=== PATIENT | male | born 1940 | race Caucasian/White ===

== ENCOUNTER 2016-10-04 10:58 | Emergency (ER) | payer MEDICARE ==
[2016-10-04 11:06] VITALS: RESP 18
[2016-10-04] MEDS ORDERED: hydrALAZINE HCL 20 MG/ML 1 ML VIAL IVP STA (11:20)
[2016-10-04] MEDS ORDERED: LORazepam 2 MG/ML SYRINGE IV STA (11:20)
--- NOTE | 2016-10-04 11:26 | ED ---
General Adult HPI - General Chief complaint: Headache Stated complaint: Headache Time Seen by Provider: 10/04/16 11:00 Source: EMS, RN notes reviewed Mode of arrival: EMS Limitations: no limitations - History of Present Illness Initial comments: This is a 75-year-old male presents to the emergency department complaining of a left-sided pain in his scalp he states last about 1-2 seconds and goes away and then after 5-10 minutes comes back again. Patient states it currently is not there. Patient states he did not take his blood pressure medications today either. Patient denies any visual changes patient denies any speech changes patient denies any numbness or weakness. Patient denies any recent trauma or injury. Patient denies any chest pain palpitations difficulty breathing or shortness of breath. Patient denies abdominal pain patient denies nausea vomiting or diarrhea. Patient denies any recent injury or trauma. Patient states currently the pain center but he thinks it'll come again. - Related Data Home Medications Medication Instructions Recorded Confirmed Nitroglycerin Sl Tabs [Nitrostat] 0.4 mg SUBLINGUAL Q5M PRN 04/07/14 10/04/16 Albuterol Inhaler [Ventolin Hfa 2 puff INHALATION RT-Q6H PRN 07/07/16 10/04/16 Inhaler] Hydrochlorothiazide [Hydrodiuril] 12.5 mg PO DAILY 08/01/16 10/04/16 diphenhydrAMINE [Benadryl] 25 mg PO QID PRN 08/10/16 10/04/16 Glimepiride [Amaryl] 1 mg PO DAILY 09/01/16 10/04/16 Allergies Allergy/AdvReac Type Severity Reaction Status Date / Time aspirin Allergy Intermediate Rash/Hives Verified 10/04/16 11:06 cephalexin monohydrate Allergy Intermediate Rash/Hives,SHORTNESS Verified 11:06 [From Keflex] OF BREATH, SWELLING cyclobenzaprine HCl Allergy Intermediate Swelling Verified 10/04/16 11:06 [From Flexeril] hydromorphone HCl Allergy Intermediate Swelling Verified 10/04/16 11:06 [From Dilaudid] ibuprofen [From Motrin] Allergy Intermediate Rash/Hives Verified 10/04/16 11:06 ketorolac tromethamine Allergy Intermediate Swelling Verified 10/04/16 11:06 [From Toradol] meperidine HCl [From Demerol] Allergy Intermediate Swelling Verified 10/04/16 11 :06 Tetanus Vaccines and Toxoid Allergy Intermediate Rash/Hives Verified 10/04/16 11 :06 [Tetanus Vaccines & Toxoid] celecoxib [From Celebrex] Allergy Swelling Verified 10/04/16 11:06 levofloxacin [From Levaquin] Allergy Swelling Verified 10/04/16 11:06 tramadol HCl [From Ultram] Allergy Rash/Hives Verified 10/04/16 11:06 fentanyl AdvReac Intermediate Nausea Verified 10/04/16 11:06 Review of Systems ROS Statement: Those systems with pertinent positive or pertinent negative responses have been documented in the HPI. ROS Other: All systems not noted in ROS Statement are negative. Past Medical History Past Medical History: Asthma, Cancer, Diabetes Mellitus, Hyperlipidemia, Hypertension, Neurologic Disorder, Osteoarthritis (OA), Pneumonia Additional Past Medical History / Comment(s): Other HX: pancreatic cancer with surgery; parkinsons, generalized OA, RA, gout bilateral feet yrs ago, numbness/ tingling hands/feet, moderate PVD, bronchitis, pneumonia in past, pt is diabetic Last Myocardial Infarction Date:: 12/2005 History of Any Multi-Drug Resistant Organisms: None Reported Date of last positivie culture/infection: not sure MDRO Source:: under left arm Past Surgical History: Heart Catheterization, Joint Replacement, Tonsillectomy Additional Past Surgical History / Comment(s): 04/07/14 cath without intervention , 2013 total R knee, total L knee, R ankle ligament sx, R forearm skin graft, 2006 partial pancreas removal and spleenectomy at [facility]. Past Anesthesia/Blood Transfusion Reactions: No Reported Reaction Past Psychological History: Anxiety Additional Psychological History / Comment(s): Pt resides with his spouse. He uses a cane to ambulate. He doesn't own a car so he gets to [facility] by bus. He has meals on wheels. He has no home care agency use. He manages his own medication. His is not well she has alot of arthritis and asthma. Smoking Status: Former smoker Past Alcohol Use History: None Reported Additional Past Alcohol Use History / Comment(s): Pt started smoking in 1 and quit in 1997 Past Drug Use History: None Reported - Past Family History Father Family Medical History: Osteoarthritis (OA) Additional Family Medical History / Comment(s): Father at age 88 yrs. Mother Family Medical History: Cancer Additional Family Medical History / Comment(s): Mother of stomach cancer at age 79 yrs. General Exam - General Exam Comments Initial Comments: GENERAL: Patient is well-developed and well-nourished. Patient is nontoxic and well- hydrated and is in no acute distress. ENT: Neck is soft and supple. No significant lymphadenopathy is noted. Oropharynx is clear. Moist mucous membranes. Neck has full range of motion without eliciting any pain. EYES: The sclera were anicteric and conjunctiva were pink and moist. Extraocular movements were intact and pupils were equal round and reactive to light. Eyelids were unremarkable. PULMONARY: Unlabored respirations. Good breath sounds bilaterally. No audible rales rhonchi or wheezing was noted. CARDIOVASCULAR: There is a regular rate and rhythm without any murmurs gallops or rubs. ABDOMEN: Soft and nontender with normal bowel sounds. SKIN: Skin is clear with no lesions or rashes and otherwise unremarkable. NEUROLOGIC: Patient is alert and oriented x3. Cranial nerves II through XII are grossly intact. Motor and sensory are also intact. Normal speech, volume and content. Symmetrical smile. MUSCULOSKELETAL: Normal extremities with adequate strength and full range of motion. No lower extremity swelling or edema. No calf tenderness. LYMPHATICS: No significant lymphadenopathy is noted PSYCHIATRIC: Normal psychiatric evaluation. Patient is mildly anxious Limitations: no limitations Course Vital Signs 10/04/16 11:03 Temperature 98.4 F Pulse Rate 76 Respiratory 18 Rate Blood Pressure 181/101 O2 Sat by Pulse 98 Oximetry Disposition Clinical Impression: Scalp pain, Hypertension Disposition: HOME SELF-CARE Condition: Good Instructions: Hypertension (ED) Additional Instructions: Patient should take his medications including his hypertensive medications as prescribed Referrals: Sendy Galvin MD [Primary Care Provider] - 1-2 days
[2016-10-04 12:31] VITALS: BP 165/87; PULSE 87; TEMP 97.9
== END 2016-10-04 12:31 | disposition home or self-care (01) ==
LOC: EC 10:58
DX: R51 Headache (principal); I10 Essential (primary) hypertension; E11.9 Type 2 diabetes mellitus without complications; Z79.84 Long term (current) use of oral hypoglycemic drugs; Z98.61 Coronary angioplasty status; I25.2 Old myocardial infarction; Z79.899 Other long term (current) drug therapy; Z87.891 Personal history of nicotine dependence; Z88.6 Allergy status to analgesic agent; Z88.1 Allergy status to other antibiotic agents; Z88.5 Allergy status to narcotic agent; Z88.7 Allergy status to serum and vaccine; Z88.8 Allergy status to other drugs, medicaments and biological substances
CPT/HCPCS: 99284; 96374; 96375; J2060; J0360

== ENCOUNTER 2016-10-12 09:35 | Emergency (ER) | payer MEDICARE ==
[2016-10-12 09:49] VITALS: TEMP 98.3
--- NOTE | 2016-10-12 10:18 | ED ---
General Adult HPI - General Chief complaint: Extremity Problem,Nontraumatic Stated complaint: Shoulder Pain Time Seen by Provider: 10/12/16 10:04 Source: EMS, RN notes reviewed, old records reviewed Mode of arrival: EMS Limitations: no limitations - History of Present Illness Initial comments: Patient 75-year-old male presenting by EMS today with a chief complaint of left neck and shoulder pain. He describes it as "sharp". States worse with certain movements. Does admit that the pain is worse when he rotates his head to the left. He states it started 4 days ago when he woke up in the morning and had this pain. Patient admits the night prior he was experiencing some chest pain and did take 2 nitro tabs. States has not had any chest pain since. Patient denies any other complaints or associated symptoms. Patient denies any recent fever, chills, shortness of breath, back pain, abdominal pain, nausea or vomiting, numbness or tingling, dysuria or hematuria, constipation or diarrhea, headaches or visual changes, or any other complaints. - Related Data Home Medications Medication Instructions Recorded Confirmed Nitroglycerin Sl Tabs [Nitrostat] 0.4 mg SUBLINGUAL Q5M PRN 04/07/14 10/12/16 Albuterol Inhaler [Ventolin Hfa 2 puff INHALATION RT-Q6H PRN 07/07/16 10/12/16 Inhaler] Hydrochlorothiazide [Hydrodiuril] 12.5 mg PO DAILY 08/01/16 10/12/16 diphenhydrAMINE [Benadryl] 25 mg PO QID PRN 08/10/16 10/12/16 Glimepiride [Amaryl] 1 mg PO DAILY 09/01/16 10/12/16 Previous Rx's Medication Instructions Recorded Baclofen [Lioresal] 5 mg PO BID #10 tablet 10/12/16 Allergies Allergy/AdvReac Type Severity Reaction Status Date / Time aspirin Allergy Intermediate Rash/Hives Verified 10/12/16 09:48 cephalexin monohydrate Allergy Intermediate Rash/Hives,SHORTNESS Verified 09:48 [From Keflex] OF BREATH, SWELLING cyclobenzaprine HCl Allergy Intermediate Swelling Verified 10/12/16 09:48 [From Flexeril] hydromorphone HCl Allergy Intermediate Swelling Verified 10/12/16 09:48 [From Dilaudid] ibuprofen [From Motrin] Allergy Intermediate Rash/Hives Verified 10/12/16 09:48 ketorolac tromethamine Allergy Intermediate Swelling Verified 10/12/16 09:48 [From Toradol] meperidine HCl [From Demerol] Allergy Intermediate Swelling Verified 10/12/16 09 :48 Tetanus Vaccines and Toxoid Allergy Intermediate Rash/Hives Verified 10/12/16 09 :48 [Tetanus Vaccines & Toxoid] celecoxib [From Celebrex] Allergy Swelling Verified 10/12/16 09:48 levofloxacin [From Levaquin] Allergy Swelling Verified 10/12/16 09:48 tramadol HCl [From Ultram] Allergy Rash/Hives Verified 10/12/16 09:48 fentanyl AdvReac Intermediate Nausea Verified 10/12/16 09:48 Review of Systems ROS Statement: Those systems with pertinent positive or pertinent negative responses have been documented in the HPI. ROS Other: All systems not noted in ROS Statement are negative. Past Medical History Past Medical History: Asthma, Cancer, Diabetes Mellitus, Hyperlipidemia, Hypertension, Neurologic Disorder, Osteoarthritis (OA), Pneumonia Additional Past Medical History / Comment(s): Other HX: pancreatic cancer with surgery; parkinsons, generalized OA, RA, gout bilateral feet yrs ago, numbness/ tingling hands/feet, moderate PVD, bronchitis, pneumonia in past, pt is diabetic Last Myocardial Infarction Date:: 12/2005 History of Any Multi-Drug Resistant Organisms: None Reported Date of last positivie culture/infection: not sure MDRO Source:: under left arm Past Surgical History: Heart Catheterization, Joint Replacement, Tonsillectomy Additional Past Surgical History / Comment(s): 04/07/14 cath without intervention , 2013 total R knee, total L knee, R ankle ligament sx, R forearm skin graft, 2006 partial pancreas removal and spleenectomy at [facility]. Past Anesthesia/Blood Transfusion Reactions: No Reported Reaction Past Psychological History: Anxiety Additional Psychological History / Comment(s): Pt resides with his spouse. He uses a cane to ambulate. He doesn't own a car so [place]. He has meals on wheels. He has no home care agency use. He manages his own medication. His is not well she has alot of arthritis and asthma. Smoking Status: Former smoker Past Alcohol Use History: None Reported Additional Past Alcohol Use History / Comment(s): Pt started smoking in 1953 and quit in 1997 Past Drug Use History: None Reported - Past Family History Father Family Medical History: Osteoarthritis (OA) Additional Family Medical History / Comment(s): Father at age 88 yrs. Mother Family Medical History: Cancer Additional Family Medical History / Comment(s): Mother of stomach cancer at age 79 yrs. General Exam - General Exam Comments Initial Comments: General: The patient is awake and alert, in no distress, and does not appear acutely ill. Eye: Pupils are equal, round and reactive to light, extra-ocular movements are intact. No nystagmus. There is normal conjunctiva bilaterally. No signs of icterus. Ears, nose, mouth and throat: There are moist mucous membranes and no oral lesions. Neck: The neck is supple, there is no tenderness or JVD. Cardiovascular: There is a regular rate and rhythm. No murmur, rub or gallop is appreciated. Respiratory: Lungs are clear to auscultation, respirations are non-labored, breath sounds are equal. No wheezes, stridor, rales, or rhonchi. Gastrointestinal: Soft, non-distended, non-tender abdomen without masses or organomegaly noted. There is no rebound or guarding present. No CVA tenderness. Bowel sounds are unremarkable. Musculoskeletal: Normal appearance of cervical, thoracic, lumbar spine. No step-offs warm is appreciated. No tenderness over the spinous processes. Patient does have paravertebral tenderness on the side of cervical spine going down into the trapezius. Pain worse with rotation to the left. Strength 5/5. Sensation intact. Pulses equal bilaterally 2+. Neurological: A&O x 3. CN II-XII intact, There are no obvious motor or sensory deficits. Coordination appears grossly intact. Speech is normal. Skin: Skin is warm and dry and no rashes or lesions are noted. Psychiatric: Cooperative, appropriate mood & affect, normal judgment. Limitations: no limitations Course Vital Signs 10/12/16 09:47 Temperature 98.3 F Pulse Rate 85 Respiratory 18 Rate Blood Pressure 157/81 O2 Sat by Pulse 94 L Oximetry Medical Decision Making - Medical Decision Making Case discussed in detail with attending physician Dr. Foy. Patient reexamined at this time shows no signs of distress. Patient's labs were reviewed and are unremarkable. Chest x-ray negative. Patient given Valium here in the emergency room as a muscle relaxer. Patient be discharged home with a short prescription of muscle relaxer to go home with. Advised to use heat to the affected area. Advised return here to the emergency room symptoms increase or worsen or for any other concerns. - Lab Data Result diagrams: 10/12/16 10:47 10/12/16 10:47 Lab Results 10/12/16 10/12/16 10/12/16 Range/Units 10:47 10:47 10:47 WBC 8.2 (3.8-10.6) k/uL RBC 4.82 (4.30-5.90) m/uL Hgb 15.5 (13.0-17.5) gm/dL Hct 46.4 (39.0-53.0) % MCV 96.3 (80.0-100.0) fL MCH 32.1 (25.0-35.0) pg MCHC 33.3 (31.0-37.0) g/dL RDW 13.7 (11.5-15.5) % Plt Count 418 (150-450) k/uL Neutrophils % 64 % Lymphocytes % 21 % Monocytes % 6 % Eosinophils % 6 % Basophils % 1 % Neutrophils # 5.2 (1.3-7.7) k/uL Lymphocytes # 1.7 (1.0-4.8) k/uL Monocytes # 0.5 (0-1.0) k/uL Eosinophils # 0.5 (0-0.7) k/uL Basophils # 0.1 (0-0.2) k/uL PT (9.0-12.0) sec INR (<1.1) APTT (22.0-30.0) sec Sodium 140 (137-145) mmol/L Potassium 4.5 (3.5-5.1) mmol/L Chloride 105 (98-107) mmol/L Carbon Dioxide 25 (22-30) mmol/L Anion Gap 10 mmol/L BUN 17 (9-20) mg/dL Creatinine 0.87 (0.66-1.25) mg/dL Est GFR (MDRD) Af Amer >60 (>60 ml/min/1.73 sqM) Est GFR (MDRD) Non-Af >60 (>60 ml/min/1.73 sqM) Glucose 187 H (74-99) mg/dL Calcium 9.4 (8.4-10.2) mg/dL Total Bilirubin 0.9 (0.2-1.3) mg/dL AST 25 (17-59) U/L ALT 30 (21-72) U/L Alkaline Phosphatase 72 (38-126) U/L Total Creatine Kinase 67 (55-170) U/L CK-MB (CK-2) 0.6 (0.0-2.4) ng/mL CK-MB (CK-2) Rel Index 0.9 Troponin I <0.012 (0.000-0.034) ng/mL Total Protein 7.0 (6.3-8.2) g/dL Albumin 3.8 (3.5-5.0) g/dL 10/12/16 Range/Units 10:47 WBC (3.8-10.6) k/uL RBC (4.30-5.90) m/uL Hgb (13.0-17.5) gm/dL Hct (39.0-53.0) % MCV (80.0-100.0) fL MCH (25.0-35.0) pg MCHC (31.0-37.0) g/dL RDW (11.5-15.5) % Plt Count (150-450) k/uL Neutrophils % % Lymphocytes % % Monocytes % % Eosinophils % % Basophils % % Neutrophils # (1.3-7.7) k/uL Lymphocytes # (1.0-4.8) k/uL Monocytes # (0-1.0) k/uL Eosinophils # (0-0.7) k/uL Basophils # (0-0.2) k/uL PT 10.2 (9.0-12.0) sec INR 1.0 (<1.1) APTT 22.6 (22.0-30.0) sec Sodium (137-145) mmol/L Potassium (3.5-5.1) mmol/L Chloride (98-107) mmol/L Carbon Dioxide (22-30) mmol/L Anion Gap mmol/L BUN (9-20) mg/dL Creatinine (0.66-1.25) mg/dL Est GFR (MDRD) Af Amer (>60 ml/min/1.73 sqM) Est GFR (MDRD) Non-Af (>60 ml/min/1.73 sqM) Glucose (74-99) mg/dL Calcium (8.4-10.2) mg/dL Total Bilirubin (0.2-1.3) mg/dL AST (17-59) U/L ALT (21-72) U/L Alkaline Phosphatase (38-126) U/L Total Creatine Kinase (55-170) U/L CK-MB (CK-2) (0.0-2.4) ng/mL CK-MB (CK-2) Rel Index Troponin I (0.000-0.034) ng/mL Total Protein (6.3-8.2) g/dL Albumin (3.5-5.0) g/dL Disposition Clinical Impression: Torticollis, acute Disposition: HOME SELF-CARE Condition: Good Instructions: Spasmodic Torticollis (ED) Additional Instructions: Please use medication as discussed. Please be aware that it may make you drowsy. Please use heat to the area as discussed. Please follow-up with family doctor in the next 2 days of symptoms have not improved. Please return to emergency room if the symptoms increase or worsen or for any other concerns. Prescriptions: Baclofen [Lioresal] 5 mg PO BID #10 tablet Time of Disposition: 11:50
[2016-10-12 11:01] LABS: Basophils # (A) 0.1 k/uL (0-0.2); Basophils % (A) 1 %; CH 32.2; CHCM 33.7; Eosinophils # (A) 0.5 k/uL (0-0.7); Eosinophils % (A) 6 %; HCT 46.4 % (39.0-53.0); HDW 2.63; HGB 15.5 gm/dL (13.0-17.5); Luc # (Auto) 0.13; Luc % (Auto) 2; Lymphocytes # (A) 1.7 k/uL (1.0-4.8); Lymphocytes % (A) 21 %; MCH 32.1 pg (25.0-35.0); MCHC 33.3 g/dL (31.0-37.0); MCV 96.3 fL (80.0-100.0); Mean Platelet Volume 7.2; Monocytes # (A) 0.5 k/uL (0-1.0); Monocytes % (A) 6 %; Neutrophils # (A) 5.2 k/uL (1.3-7.7); Neutrophils % (A) 64 %; RBC 4.82 m/uL (4.30-5.90); RDW 13.7 % (11.5-15.5); WBC 8.2 k/uL (3.8-10.6)
[2016-10-12 11:08] LABS: ALT 30 U/L (21-72); AST 25 U/L (17-59); Alkaline Phosphatase 72 U/L (38-126); Anion Gap 10 mmol/L; Blood Urea Nitrogen 17 mg/dL (9-20); Calcium 9.4 mg/dL (8.4-10.2); Carbon Dioxide 25 mmol/L (22-30); Chloride 105 mmol/L (98-107); Glucose 187 mg/dL (74-99); Non-African American GFR(MDRD) >60 (>60 ml/min/1.73 sqM); Potassium 4.5 mmol/L (3.5-5.1); Sodium 140 mmol/L (137-145); Total Bilirubin 0.9 mg/dL (0.2-1.3)
[2016-10-12 11:09] LABS: Partial Thromboplastin Time 22.6 sec (22.0-30.0); Prothrombin Time 10.2 sec (9.0-12.0)
--- NOTE | 2016-10-12 11:26 | XR ---
EXAMINATION TYPE: XR chest 2V DATE OF EXAM: 10/12/2016 11:03 AM COMPARISON: 08/07/2016 HISTORY: Shortness of breath TECHNIQUE: Frontal and lateral views of the chest are obtained. FINDINGS: Scattered senescent parenchymal changes noted. Hyperinflation compatible with COPD. No evidence for infiltrate. No evidence for atelectasis. Heart size is stable. Mediastinal structures are stable and grossly unremarkable. No evidence for hilar prominence. Degenerative changes dorsal spine. IMPRESSION: 1. No evidence for acute pulmonary disease.
[2016-10-12 11:28] LABS: Creatine Kinase 67 U/L (55-170)
[2016-10-12 11:40] LABS: Creatine Kinase MB 0.6 ng/mL (0.0-2.4); Troponin I <0.012 ng/mL (0.000-0.034)
[2016-10-12] MEDS ORDERED: DIAZEPAM 5 MG TAB PO STA (11:40)
[2016-10-12 12:03] VITALS: BP 182/84; PULSE 67; RESP 16
== END 2016-10-12 12:09 | disposition home or self-care (01) ==
LOC: EC 09:35
DX: M43.6 Torticollis (principal); E11.9 Type 2 diabetes mellitus without complications; Z98.61 Coronary angioplasty status; I10 Essential (primary) hypertension; Z87.891 Personal history of nicotine dependence; Z79.84 Long term (current) use of oral hypoglycemic drugs; Z79.899 Other long term (current) drug therapy; Z88.6 Allergy status to analgesic agent; Z88.1 Allergy status to other antibiotic agents; Z88.5 Allergy status to narcotic agent; Z88.7 Allergy status to serum and vaccine; Z88.8 Allergy status to other drugs, medicaments and biological substances
CPT/HCPCS: 36415; 71020; 80053; 82550; 82553; 84484; 85025; 85610; 85730; 93005; 99284

== ENCOUNTER 2016-10-18 12:29 | Emergency (ER) | payer MEDICARE ==
[2016-10-18 12:37] VITALS: BP 198/92; PULSE 75; RESP 20; TEMP 98
[2016-10-18] MEDS ORDERED: diphenhydrAMINE 50 MG CAP PO STA (13:25)
[2016-10-18] MEDS ORDERED: TRIAMCINOLONE 0.1% CREAM 80 GM TUBE TOPICAL STA (13:28)
--- NOTE | 2016-10-18 13:31 | ED ---
Skin/Abscess/FB HPI - General Chief complaint: Skin/Abscess/Foreign Body Stated complaint: Rash Time Seen by Provider: 10/18/16 12:54 Source: patient, RN notes reviewed, old records reviewed Mode of arrival: ambulatory Limitations: physical limitation - History of Present Illness Initial comments: Patient is a 75-year-old male chief complaint of a pruritic rash for one day. Patient reports that he took one Benadryl a few days ago which seemed to help. Patient reports that he is not taking any Benadryl since then. Patient reports that he is unaware of any bites. Patient states that he has not been any recent antibiotics or had any new exposures. Patient reports that the pruritic rash is mainly over his back and a few spots on his chest. Patient denies any other symptoms including fever or chills. Patient denies any other symptoms including fever, chills, shortness of breath, chest pain, back pain, abdominal pain, nausea vomiting, numbness or tingling, dysuria or hematuria, constipation or diarrhea, headaches or visual changes, or any other current symptoms - Related Data Home Medications Medication Instructions Recorded Confirmed Nitroglycerin Sl Tabs [Nitrostat] 0.4 mg SUBLINGUAL Q5M PRN 04/07/14 10/18/16 Albuterol Inhaler [Ventolin Hfa 2 puff INHALATION RT-Q6H PRN 07/07/16 10/18/16 Inhaler] Hydrochlorothiazide [Hydrodiuril] 12.5 mg PO DAILY 08/01/16 10/18/16 diphenhydrAMINE [Benadryl] 25 mg PO QID PRN 08/10/16 10/18/16 Glimepiride [Amaryl] 1 mg PO DAILY 09/01/16 10/18/16 Previous Rx's Medication Instructions Recorded Baclofen [Lioresal] 5 mg PO BID #10 tablet 10/12/16 Allergies Allergy/AdvReac Type Severity Reaction Status Date / Time aspirin Allergy Intermediate Rash/Hives Verified 10/18/16 12:32 cephalexin monohydrate Allergy Intermediate Rash/Hives,SHORTNESS Verified 12:32 [From Keflex] OF BREATH, SWELLING cyclobenzaprine HCl Allergy Intermediate Swelling Verified 10/18/16 12:32 [From Flexeril] hydromorphone HCl Allergy Intermediate Swelling Verified 10/18/16 12:32 [From Dilaudid] ibuprofen [From Motrin] Allergy Intermediate Rash/Hives Verified 10/18/16 12:32 ketorolac tromethamine Allergy Intermediate Swelling Verified 10/18/16 12:32 [From Toradol] meperidine HCl [From Demerol] Allergy Intermediate Swelling Verified 10/18/16 12 :32 Tetanus Vaccines and Toxoid Allergy Intermediate Rash/Hives Verified 10/18/16 12 :32 [Tetanus Vaccines & Toxoid] celecoxib [From Celebrex] Allergy Swelling Verified 10/18/16 12:32 levofloxacin [From Levaquin] Allergy Swelling Verified 10/18/16 12:32 tramadol HCl [From Ultram] Allergy Rash/Hives Verified 10/18/16 12:32 fentanyl AdvReac Intermediate Nausea Verified 10/18/16 12:32 Review of Systems ROS Statement: Those systems with pertinent positive or pertinent negative responses have been documented in the HPI. ROS Other: All systems not noted in ROS Statement are negative. Past Medical History Past Medical History: Asthma, Cancer, Diabetes Mellitus, Hyperlipidemia, Hypertension, Neurologic Disorder, Osteoarthritis (OA), Pneumonia Additional Past Medical History / Comment(s): Other HX: pancreatic cancer with surgery; parkinsons, generalized OA, RA, gout bilateral feet yrs ago, numbness/ tingling hands/feet, moderate PVD, bronchitis, pneumonia in past, pt is diabetic Last Myocardial Infarction Date:: 12/2005 History of Any Multi-Drug Resistant Organisms: None Reported Date of last positivie culture/infection: not sure MDRO Source:: under left arm Past Surgical History: Heart Catheterization, Joint Replacement, Tonsillectomy Additional Past Surgical History / Comment(s): 04/07/14 cath without intervention , 2013 total R knee, total L knee, R ankle ligament sx, R forearm skin graft, 2006 partial pancreas removal and spleenectomy at [facility]. Past Anesthesia/Blood Transfusion Reactions: No Reported Reaction Past Psychological History: Anxiety Additional Psychological History / Comment(s): Pt resides with his spouse. He uses a cane to ambulate. He doesn't own a car so he gets to [employer] by bus. He has meals on wheels. He has no home care agency use. He manages his own medication. His is not well she has alot of arthritis and asthma. Smoking Status: Former smoker Past Alcohol Use History: None Reported Additional Past Alcohol Use History / Comment(s): Pt started smoking in 3 and quit in 1997 Past Drug Use History: None Reported - Past Family History Father Family Medical History: Osteoarthritis (OA) Additional Family Medical History / Comment(s): Father at age 88 yrs. Mother Family Medical History: Cancer Additional Family Medical History / Comment(s): Mother of stomach cancer at age 79 yrs. General Exam - General Exam Comments Initial Comments: Patient is a alert and oriented [id number] male. He does not appear to be in any acute distress. Limitations: physical limitation General appearance: alert, in no apparent distress Head exam: Present: atraumatic, normocephalic, normal inspection Eye exam: Present: normal appearance, PERRL, EOMI. Absent: scleral icterus, conjunctival injection, periorbital swelling ENT exam: Present: normal exam, mucous membranes moist Neck exam: Present: normal inspection, full ROM. Absent: tenderness, meningismus, lymphadenopathy Respiratory exam: Present: normal lung sounds bilaterally. Absent: respiratory distress, wheezes, rales, rhonchi, stridor Cardiovascular Exam: Present: regular rate, normal rhythm, normal heart sounds. Absent: systolic murmur, diastolic murmur, rubs, gallop, clicks GI/Abdominal exam: Present: soft, normal bowel sounds. Absent: distended, tenderness, guarding, rebound, rigid Extremities exam: Present: normal inspection, full ROM, normal capillary refill. Absent: tenderness, pedal edema, joint swelling, calf tenderness Back exam: Present: normal inspection Neurological exam: Present: alert, oriented X3, CN II-XII intact Psychiatric exam: Present: normal affect, normal mood Skin exam: Present: warm, dry, intact, normal color, rash (Slight scattered areas of erythema over her chest. These could be consistent with flea bites. No evidence of scaling or scabbing over top of it.) Course Vital Signs 10/18/16 12:32 Temperature 98.0 F Pulse Rate 75 Respiratory 20 Rate Blood Pressure 198/92 O2 Sat by Pulse 95 Oximetry Medical Decision Making - Medical Decision Making Patient is a 75-year-old male well-known to the emergency room with chief complaint of a pruritic rash for one day on his chest and back. Patient reports that he took a Benadryl few days ago which usually helps with this. He denies taking any Benadryl today. He denies any new exposures including antibiotics or other new exposures. Patient is given a Benadryl on the EC. The rash could be consistent with possible eczema or initial signs of fleabites. Patient advised to follow up with primary care provider. Patient understands treatment plan will comply. Return parameters were discussed. I advised patient that he needs to discontinue picking at his skin is he can cause a subsequent bacterial infection. Disposition Clinical Impression: Pruritic rash Disposition: HOME SELF-CARE Condition: Good Instructions: Urticaria (ED) Additional Instructions: Instructed to continue to take Benadryl. Apply cream as directed twice a day. Follow-up with primary care physician as directed. Referrals: Sendy Galvin MD [Primary Care Provider] - 1-2 days Time of Disposition: 13:30
== END 2016-10-18 14:12 | disposition home or self-care (01) ==
LOC: EC 12:29
DX: R21 Rash and other nonspecific skin eruption (principal); I10 Essential (primary) hypertension; E11.9 Type 2 diabetes mellitus without complications; Z79.899 Other long term (current) drug therapy; Z79.84 Long term (current) use of oral hypoglycemic drugs; Z85.07 Personal history of malignant neoplasm of pancreas; Z98.61 Coronary angioplasty status; Z88.8 Allergy status to other drugs, medicaments and biological substances; Z88.6 Allergy status to analgesic agent; Z88.1 Allergy status to other antibiotic agents; Z88.5 Allergy status to narcotic agent; Z88.7 Allergy status to serum and vaccine; Z87.891 Personal history of nicotine dependence
CPT/HCPCS: 99282

== ENCOUNTER 2016-11-09 12:46 | Emergency (ER) | payer MEDICARE ==
[2016-11-09 13:17] VITALS: BP 152/88; PULSE 78; RESP 20; TEMP 98.6
[2016-11-09] MEDS ORDERED: ORPHENADRINE 30 MG/ML 2 ML VIAL IM STA (14:14)
--- NOTE | 2016-11-09 14:18 | ED ---
Neck Injury/Pain HPI - General Chief Complaint: Neck Pain/Injury Stated Complaint: NECK PAIN Time Seen by Provider: 11/09/16 14:03 Source: patient, RN notes reviewed Mode of arrival: wheelchair Limitations: no limitations - History of Present Illness Initial Comments: 75-year-old male presents emergency Department chief complaint left-sided neck pain. Patient states is swollen. Patient states that he feels her small lumps along the muscle. Patient denies any dental pain, sore throat. Patient denies fever, chills. Patient denies any trauma. Patient states she does have some pain when he looks left and right. Denies any difficulty swallowing. Denies chest pain or shortness of breath. - Related Data Home Medications Medication Instructions Recorded Confirmed Nitroglycerin Sl Tabs [Nitrostat] 0.4 mg SUBLINGUAL Q5M PRN 04/07/14 11/09/16 Hydrochlorothiazide [Hydrodiuril] 12.5 mg PO DAILY 08/01/16 11/09/16 Glimepiride [Amaryl] 1 mg PO DAILY 09/01/16 11/09/16 Budesonide/Formoterol Fumarate 2 puff INHALATION BID 11/09/16 11/09/16 [Symbicort 160-4.5 Mcg Inhaler] Previous Rx's Medication Instructions Recorded Amoxicillin/Potassium Clav 1 tab PO Q12HR #20 tab 11/09/16 [Augmentin 875-125 Tablet] Orphenadrine [Norflex] 100 mg PO Q12H #10 tablet.er 11/09/16 Allergies Allergy/AdvReac Type Severity Reaction Status Date / Time aspirin Allergy Intermediate Rash/Hives Verified 11/09/16 14:12 cephalexin monohydrate Allergy Intermediate Rash/Hives,SHORTNESS Verified 14:12 [From Keflex] OF BREATH, SWELLING cyclobenzaprine HCl Allergy Intermediate Swelling Verified 11/09/16 14:12 [From Flexeril] hydromorphone HCl Allergy Intermediate Swelling Verified 11/09/16 14:12 [From Dilaudid] ibuprofen [From Motrin] Allergy Intermediate Rash/Hives Verified 11/09/16 14:12 ketorolac tromethamine Allergy Intermediate Swelling Verified 11/09/16 14:12 [From Toradol] meperidine HCl [From Demerol] Allergy Intermediate Swelling Verified 11/09/16 14 :12 Tetanus Vaccines and Toxoid Allergy Intermediate Rash/Hives Verified 11/09/16 14 :12 [Tetanus Vaccines & Toxoid] celecoxib [From Celebrex] Allergy Swelling Verified 11/09/16 14:12 levofloxacin [From Levaquin] Allergy Swelling Verified 11/09/16 14:12 tramadol HCl [From Ultram] Allergy Rash/Hives Verified 11/09/16 14:12 fentanyl AdvReac Intermediate Nausea Verified 11/09/16 14:12 Review of Systems ROS Statement: Those systems with pertinent positive or pertinent negative responses have been documented in the HPI. ROS Other: All systems not noted in ROS Statement are negative. Past Medical History Past Medical History: Asthma, Cancer, Diabetes Mellitus, Hyperlipidemia, Hypertension, Neurologic Disorder, Osteoarthritis (OA), Pneumonia Additional Past Medical History / Comment(s): Other HX: pancreatic cancer with surgery; parkinsons, generalized OA, RA, gout bilateral feet yrs ago, numbness/ tingling hands/feet, moderate PVD, bronchitis, pneumonia in past, pt is diabetic Last Myocardial Infarction Date:: 12/2005 History of Any Multi-Drug Resistant Organisms: None Reported Date of last positivie culture/infection: not sure MDRO Source:: under left arm Past Surgical History: Heart Catheterization, Joint Replacement, Tonsillectomy Additional Past Surgical History / Comment(s): 04/07/14 cath without intervention , 2013 total R knee, total L knee, R ankle ligament sx, R forearm skin graft, 2006 partial pancreas removal and spleenectomy at [facility]. Past Anesthesia/Blood Transfusion Reactions: No Reported Reaction Past Psychological History: Anxiety Additional Psychological History / Comment(s): Pt resides with his spouse. He uses a cane to ambulate. He doesn't own a car so he gets to [place] by bus. He has meals on wheels. He has no home care agency use. He manages his own medication. His is not well she has alot of arthritis and asthma. Smoking Status: Former smoker Past Alcohol Use History: None Reported Additional Past Alcohol Use History / Comment(s): Pt started smoking in 3 and quit in 1997 Past Drug Use History: None Reported - Past Family History Father Family Medical History: Osteoarthritis (OA) Additional Family Medical History / Comment(s): Father at age 88 yrs. Mother Family Medical History: Cancer Additional Family Medical History / Comment(s): Mother of stomach cancer at age 79 yrs. General Exam Limitations: no limitations General appearance: alert, in no apparent distress Head exam: Present: atraumatic, normocephalic, normal inspection Eye exam: Present: normal appearance, PERRL, EOMI. Absent: scleral icterus, conjunctival injection, periorbital swelling ENT exam: Present: normal exam, normal oropharynx, mucous membranes moist, TM's normal bilaterally, normal external ear exam Neck exam: Present: tenderness, full ROM, lymphadenopathy (2 palpable lymph nodes along anterior cervical chain). Absent: normal inspection (Mild swelling along the left SCM), meningismus Respiratory exam: Present: normal lung sounds bilaterally. Absent: respiratory distress, wheezes, rales, rhonchi, stridor Cardiovascular Exam: Present: regular rate, normal rhythm, normal heart sounds. Absent: systolic murmur, diastolic murmur, rubs, gallop, clicks Course Vital Signs 11/09/16 13:16 Temperature 98.6 F Pulse Rate 78 Respiratory 20 Rate Blood Pressure 152/88 O2 Sat by Pulse 96 Oximetry Medical Decision Making - Medical Decision Making 75-year-old male presents to emergency department with chief complaint of left sided neck pain. Patient may have muscular strain or muscle spasms. Patient does have a small lymph node which she'll be placed on antibiotics this time. He'll follow-up was primary care physician if symptoms do not improve and return parameters were discussed. Disposition Clinical Impression: Neck pain, Cervical lymphadenopathy Disposition: HOME SELF-CARE Condition: Stable Instructions: Cervical Strain (ED) Additional Instructions: Please return to the Emergency Department if symptoms worsen or any other concerns. Prescriptions: Amoxicillin/Potassium Clav [Augmentin 875-125 Tablet] 1 tab PO Q12HR #20 tab Orphenadrine [Norflex] 100 mg PO Q12H #10 tablet.er Time of Disposition: 14:18
== END 2016-11-09 14:25 | disposition home or self-care (01) ==
LOC: EC 12:46
DX: M54.2 Cervicalgia (principal); R59.0 Localized enlarged lymph nodes; E11.9 Type 2 diabetes mellitus without complications; Z79.84 Long term (current) use of oral hypoglycemic drugs; Z79.51 Long term (current) use of inhaled steroids; Z79.899 Other long term (current) drug therapy; I10 Essential (primary) hypertension; E78.5 Hyperlipidemia, unspecified; Z98.61 Coronary angioplasty status; Z85.07 Personal history of malignant neoplasm of pancreas; Z87.891 Personal history of nicotine dependence; Z88.6 Allergy status to analgesic agent; Z88.1 Allergy status to other antibiotic agents; Z88.5 Allergy status to narcotic agent; Z88.7 Allergy status to serum and vaccine
CPT/HCPCS: 99283; 96372; J2360

== ENCOUNTER 2016-11-11 16:56 | Emergency (ER) | payer MEDICARE ==
[2016-11-11] MEDS ORDERED: MORPHINE SULFATE 4 MG/ML SYRINGE IVP STA (17:35)
[2016-11-11] MEDS ORDERED: MORPHINE SULFATE 10 MG/ML SYRINGE IM STA (17:43)
--- NOTE | 2016-11-11 17:45 | ED ---
Neck Injury/Pain HPI - General Chief Complaint: Neck Pain/Injury Stated Complaint: Neck Pain Time Seen by Provider: 11/11/16 17:09 Mode of arrival: EMS - History of Present Illness Initial Comments: The patient is a 75-year-old male who presents to the ED with a chief complaint of neck pain. The patient states that he is experiencing pain on the right side of his neck. He states this is identical to the pain that he was experiencing yesterday when he came to the emergency department. Patient states that he is feeling a spasming sensation. He notes that it starts at the base of his skull on the right side and then courses down the paraspinal musculature on the right side of his neck. He denies any numbness or tingling in his arms. He denies any weakness of the bilateral upper extremities. He denies any visual changes. Patient denies any headache. Patient states that he was prescribed Norflex yesterday but did not take this medication today. Patient is requesting that he be provided with a dose of morphine here in the emergency department. He states that he is ALLERGIC to all other pain medications. Patient is denying any fevers or chills. Denies any nausea or vomiting. - Related Data Home Medications Medication Instructions Recorded Confirmed Nitroglycerin Sl Tabs [Nitrostat] 0.4 mg SUBLINGUAL Q5M PRN 04/07/14 11/11/16 Hydrochlorothiazide [Hydrodiuril] 12.5 mg PO DAILY 08/01/16 11/11/16 Glimepiride [Amaryl] 1 mg PO DAILY 09/01/16 11/11/16 Budesonide/Formoterol Fumarate 2 puff INHALATION RT-BID 11/09/16 11/11/16 [Symbicort 160-4.5 Mcg Inhaler] Previous Rx's Medication Instructions Recorded Amoxicillin/Potassium Clav 1 tab PO Q12HR #20 tab 11/09/16 [Augmentin 875-125 Tablet] Orphenadrine [Norflex] 100 mg PO Q12H #10 tablet.er 11/09/16 Allergies Allergy/AdvReac Type Severity Reaction Status Date / Time aspirin Allergy Intermediate Rash/Hives Verified 11/11/16 17:14 cephalexin monohydrate Allergy Intermediate Rash/Hives,SHORTNESS Verified 17:14 [From Keflex] OF BREATH, SWELLING cyclobenzaprine HCl Allergy Intermediate Swelling Verified 11/11/16 17:14 [From Flexeril] hydromorphone HCl Allergy Intermediate Swelling Verified 11/11/16 17:14 [From Dilaudid] ibuprofen [From Motrin] Allergy Intermediate Rash/Hives Verified 11/11/16 17:14 ketorolac tromethamine Allergy Intermediate Swelling Verified 11/11/16 17:14 [From Toradol] meperidine HCl [From Demerol] Allergy Intermediate Swelling Verified 11/11/16 17 :14 Tetanus Vaccines and Toxoid Allergy Intermediate Rash/Hives Verified 11/11/16 17 :14 [Tetanus Vaccines & Toxoid] celecoxib [From Celebrex] Allergy Swelling Verified 11/11/16 17:14 levofloxacin [From Levaquin] Allergy Swelling Verified 11/11/16 17:14 tramadol HCl [From Ultram] Allergy Rash/Hives Verified 11/11/16 17:14 fentanyl AdvReac Intermediate Nausea Verified 11/11/16 17:14 Review of Systems ROS Statement: Those systems with pertinent positive or pertinent negative responses have been documented in the HPI. ROS Other: All systems not noted in ROS Statement are negative. Constitutional: Denies: fever, chills, weakness ENT: Denies: ear pain, throat pain, dental pain Respiratory: Denies: cough, dyspnea, wheezes Cardiovascular: Denies: chest pain, palpitations, dyspnea on exertion, orthopnea Endocrine: Denies: fatigue Gastrointestinal: Denies: abdominal pain, nausea, vomiting, diarrhea, constipation Genitourinary: Denies: urgency Musculoskeletal: Reports: other (neck pain in the paraspinal region of the cervical spine) Skin: Denies: rash, lesions, change in color Neurological: Denies: headache, weakness, numbness, paresthesias, confusion Psychiatric: Denies: anxiety, depression Past Medical History Past Medical History: Asthma, Cancer, Diabetes Mellitus, Hyperlipidemia, Hypertension, Neurologic Disorder, Osteoarthritis (OA), Pneumonia Additional Past Medical History / Comment(s): Other HX: pancreatic cancer with surgery; parkinsons, generalized OA, RA, gout bilateral feet yrs ago, numbness/ tingling hands/feet, moderate PVD, bronchitis, pneumonia in past, pt is diabetic Last Myocardial Infarction Date:: 12/2005 History of Any Multi-Drug Resistant Organisms: None Reported Date of last positivie culture/infection: not sure MDRO Source:: under left arm Past Surgical History: Heart Catheterization, Joint Replacement, Tonsillectomy Additional Past Surgical History / Comment(s): 04/07/14 cath without intervention , 2013 total R knee, total L knee, R ankle ligament sx, R forearm skin graft, 2006 partial pancreas removal and spleenectomy at [facility]. Past Anesthesia/Blood Transfusion Reactions: No Reported Reaction Past Psychological History: Anxiety Additional Psychological History / Comment(s): Pt resides with his spouse. He uses a cane to ambulate. He doesn't own a car so he gets to [facility] by bus. He has meals on wheels. He has no home care agency use. He manages his own medication. His is not well she has alot of arthritis and asthma. Smoking Status: Former smoker Past Alcohol Use History: None Reported Additional Past Alcohol Use History / Comment(s): Pt started smoking in 1952 and quit in 1997 Past Drug Use History: None Reported - Past Family History Father Family Medical History: Osteoarthritis (OA) Additional Family Medical History / Comment(s): Father at age 88 yrs. Mother Family Medical History: Cancer Additional Family Medical History / Comment(s): Mother of stomach cancer at age 79 yrs. General Exam General appearance: alert, in no apparent distress Head exam: Present: atraumatic, normocephalic, normal inspection Eye exam: Present: normal appearance, PERRL, EOMI, other (patient wears glasses) . Absent: scleral icterus, conjunctival injection, nystagmus Pupils: Present: normal accommodation, other (pupils are 3mm, equal and reactive ) ENT exam: Present: normal exam, normal oropharynx, mucous membranes moist Neck exam: Present: normal inspection, tenderness (tenderness noted at the base of the skull in the occipital region and down the paraspinal musculature along the right side of the cervical spine) Respiratory exam: Present: normal lung sounds bilaterally. Absent: respiratory distress, wheezes, rales, rhonchi, stridor Cardiovascular Exam: Present: regular rate, normal rhythm GI/Abdominal exam: Present: soft. Absent: distended, tenderness, guarding, rebound Extremities exam: Present: normal inspection, full ROM, tenderness Back exam: Present: normal inspection, full ROM, tenderness Neurological exam: Present: alert, oriented X3 Psychiatric exam: Present: normal affect, normal mood Skin exam: Present: warm, dry, intact Course Vital Signs 11/11/16 11/11/16 11/11/16 17:00 17:21 18:31 Temperature 97.4 F L 98.8 F Pulse Rate 97 94 79 Respiratory 20 18 21 Rate Blood Pressure 196/96 164/69 176/88 O2 Sat by Pulse 94 L 98 95 Oximetry 11/11/16 19:15 Temperature 98.6 F Pulse Rate 78 Respiratory 20 Rate Blood Pressure 159/78 O2 Sat by Pulse 96 Oximetry Medical Decision Making - Medical Decision Making Patient is a 75-year-old male who presents to the ED with a chief complaint of right-sided neck spasm. Patient states that it started later today. Patient notes that he did not take any of the Norflex he was prescribed yesterday for left-sided neck spasm. Patient denies any fevers or chills. Denies any nausea or vomiting. Patient states that he gets periodic neck spasms from time-to- time. He states that it is sofia to all other neck spasms he's had in the past. The patient is requesting Morphine by name to help treat his symptoms. We'll provide the patient with a dose of morphine 6 mg IM. Reevaluate patient afterwards. Patient has no neurologic deficits at this point in time. He is not complaining of any neurologic findings. No visual changes. No weakness of the bilateral upper extremities. Cranial nerves II-XII are noted to be intact. Pupils equal bilaterally. Suspect the patient is suffering from neck spasm, torticollis. We'll provide patient with pain control here in the ED and have him continue with his Norflex at home. 6:32 PM The patient states that his pain is improved but not resolved with Morphine. Will provide patient with Valium 5mg PO. 7:04 PM The patient states that his pain is improved. Counseled him to use ice packs and continue to use Norflex while at home. The patient asked if I thought that this could be a CVA. I do not think that it is due to lack of neurologic deficits and resolution with medication provided today. I have encouraged the patient to schedule an appointment with his PCP to have a carotid doppler performed. Patient will be discharged at this point in time. Encouraged to return to the ED should his symptoms worsen or should he develop any weakness of the upper or lower extremities. Disposition Clinical Impression: Muscle spasms of neck Disposition: HOME SELF-CARE Condition: Good Instructions: Muscle Spasm (ED), Spasmodic Torticollis (ED) Additional Instructions: Please continue taking your Norflex at home as needed for your neck spasm Referrals: Sendy Galvin MD [Primary Care Provider] - 1-2 days Time of Disposition: 19:03
[2016-11-11] MEDS ORDERED: DIAZEPAM 5 MG TAB PO STA (18:31)
[2016-11-11 19:17] VITALS: BP 159/78; PULSE 78; RESP 20; TEMP 98.6
== END 2016-11-11 19:17 | disposition home or self-care (01) ==
LOC: EC 16:56
DX: M62.838 Other muscle spasm (principal); E11.9 Type 2 diabetes mellitus without complications; Z79.84 Long term (current) use of oral hypoglycemic drugs; I10 Essential (primary) hypertension; Z79.51 Long term (current) use of inhaled steroids; Z79.899 Other long term (current) drug therapy; Z98.61 Coronary angioplasty status; Z88.6 Allergy status to analgesic agent; Z88.1 Allergy status to other antibiotic agents; Z88.5 Allergy status to narcotic agent; Z88.7 Allergy status to serum and vaccine; Z88.8 Allergy status to other drugs, medicaments and biological substances; Z87.891 Personal history of nicotine dependence
CPT/HCPCS: 99283; 96372; J2270

== ENCOUNTER 2016-11-12 16:41 | Emergency (ER) | payer MEDICARE ==
[2016-11-12 16:50] VITALS: RESP 18; TEMP 97
[2016-11-12] MEDS ORDERED: diphenhydrAMINE 50 MG/ML 1 ML VIAL IVP STA (16:52)
[2016-11-12] MEDS ORDERED: FAMOTIDINE 20 MG/2 ML VIAL IV STA (16:52)
[2016-11-12] MEDS ORDERED: methylPREDNISolone SOD SUCCI 125 MG/2 ML VIAL IV STA (16:52)
--- NOTE | 2016-11-12 16:55 | ED ---
General Adult HPI - General Chief complaint: Recheck/Abnormal Lab/Rx Stated complaint: swollen lip Time Seen by Provider: 11/12/16 16:44 Source: patient, RN notes reviewed Mode of arrival: EMS Limitations: no limitations - History of Present Illness Initial comments: Patient 75-year-old male who presents emergency room today by EMS, the chief complaint of lower lip swelling that began approximately 2-3 hours ago. He states it is more swollen the left lower side. He does admit that it feels tight. He denies any difficulty breathing or swallowing. States he has had angioedema once in the past is unsure to what. Patient denies any other complaints or symptoms. Patient denies any recent fever, chills, shortness of breath, chest pain, back pain, abdominal pain, nausea or vomiting, numbness or tingling, dysuria or hematuria, constipation or diarrhea, headaches or visual changes, or any other complaints. - Related Data Home Medications Medication Instructions Recorded Confirmed Nitroglycerin Sl Tabs [Nitrostat] 0.4 mg SUBLINGUAL Q5M PRN 04/07/14 11/11/16 Hydrochlorothiazide [Hydrodiuril] 12.5 mg PO DAILY 08/01/16 11/11/16 Glimepiride [Amaryl] 1 mg PO DAILY 09/01/16 11/11/16 Budesonide/Formoterol Fumarate 2 puff INHALATION RT-BID 11/09/16 11/11/16 [Symbicort 160-4.5 Mcg Inhaler] Previous Rx's Medication Instructions Recorded Amoxicillin/Potassium Clav 1 tab PO Q12HR #20 tab 11/09/16 [Augmentin 875-125 Tablet] Orphenadrine [Norflex] 100 mg PO Q12H #10 tablet.er 11/09/16 Famotidine [Pepcid] 20 mg PO BID #20 tablet 11/12/16 predniSONE 40 mg PO DAILY 5 Days 11/12/16 Allergies Allergy/AdvReac Type Severity Reaction Status Date / Time aspirin Allergy Intermediate Rash/Hives Verified 11/11/16 17:14 cephalexin monohydrate Allergy Intermediate Rash/Hives,SHORTNESS Verified 17:14 [From Keflex] OF BREATH, SWELLING cyclobenzaprine HCl Allergy Intermediate Swelling Verified 11/11/16 17:14 [From Flexeril] hydromorphone HCl Allergy Intermediate Swelling Verified 11/11/16 17:14 [From Dilaudid] ibuprofen [From Motrin] Allergy Intermediate Rash/Hives Verified 11/11/16 17:14 ketorolac tromethamine Allergy Intermediate Swelling Verified 11/11/16 17:14 [From Toradol] meperidine HCl [From Demerol] Allergy Intermediate Swelling Verified 11/11/16 17 :14 Tetanus Vaccines and Toxoid Allergy Intermediate Rash/Hives Verified 11/11/16 17 :14 [Tetanus Vaccines & Toxoid] celecoxib [From Celebrex] Allergy Swelling Verified 11/11/16 17:14 levofloxacin [From Levaquin] Allergy Swelling Verified 11/11/16 17:14 tramadol HCl [From Ultram] Allergy Rash/Hives Verified 11/11/16 17:14 fentanyl AdvReac Intermediate Nausea Verified 11/11/16 17:14 Review of Systems ROS Statement: Those systems with pertinent positive or pertinent negative responses have been documented in the HPI. ROS Other: All systems not noted in ROS Statement are negative. Past Medical History Past Medical History: Asthma, Cancer, Diabetes Mellitus, Hyperlipidemia, Hypertension, Neurologic Disorder, Osteoarthritis (OA), Pneumonia Additional Past Medical History / Comment(s): Other HX: pancreatic cancer with surgery; parkinsons, generalized OA, RA, gout bilateral feet yrs ago, numbness/ tingling hands/feet, moderate PVD, bronchitis, pneumonia in past, pt is diabetic Last Myocardial Infarction Date:: 12/2005 History of Any Multi-Drug Resistant Organisms: None Reported Date of last positivie culture/infection: not sure MDRO Source:: under left arm Past Surgical History: Heart Catheterization, Joint Replacement, Tonsillectomy Additional Past Surgical History / Comment(s): 04/07/14 cath without intervention , 2013 total R knee, total L knee, R ankle ligament sx, R forearm skin graft, 2006 partial pancreas removal and spleenectomy at [facility]. Past Anesthesia/Blood Transfusion Reactions: No Reported Reaction Past Psychological History: Anxiety Additional Psychological History / Comment(s): Pt resides with his spouse. He uses a cane to ambulate. He doesn't own a car so he gets to [facility] by bus. He has meals on wheels. He has no home care agency use. He manages his own medication. His is not well she has alot of arthritis and asthma. Smoking Status: Former smoker Past Alcohol Use History: None Reported Additional Past Alcohol Use History / Comment(s): Pt started smoking in 1953 and quit in 1997 Past Drug Use History: None Reported - Past Family History Father Family Medical History: Osteoarthritis (OA) Additional Family Medical History / Comment(s): Father at age 88 yrs. Mother Family Medical History: Cancer Additional Family Medical History / Comment(s): Mother of stomach cancer at age 79 yrs. General Exam - General Exam Comments Initial Comments: General: The patient is awake and alert, in no distress, and does not appear acutely ill. Eye: Pupils are equal, round and reactive to light, extra-ocular movements are intact. No nystagmus. There is normal conjunctiva bilaterally. No signs of icterus. Ears, nose, mouth and throat: There are moist mucous membranes and no oral lesions. Patient does have swelling to left side of the lower lip. No tongue swelling. Uvula midline. Patient swallows without difficulty. Neck: The neck is supple, there is no tenderness or JVD. Cardiovascular: There is a regular rate and rhythm. No murmur, rub or gallop is appreciated. Respiratory: Lungs are clear to auscultation, respirations are non-labored, breath sounds are equal. No wheezes, stridor, rales, or rhonchi. Gastrointestinal: Soft, non-distended, non-tender abdomen without masses or organomegaly noted. There is no rebound or guarding present. No CVA tenderness. Bowel sounds are unremarkable. Musculoskeletal: Normal ROM, no tenderness. Strength 5/5. Sensation intact. Pulses equal bilaterally 2+. Neurological: A&O x 3. CN II-XII intact, There are no obvious motor or sensory deficits. Coordination appears grossly intact. Speech is normal. Skin: Skin is warm and dry and no rashes or lesions are noted. Psychiatric: Cooperative, appropriate mood & affect, normal judgment. Limitations: no limitations Course Vital Signs 11/12/16 11/12/16 11/12/16 16:48 18:01 18:07 Temperature 97.0 F L Pulse Rate 80 69 Respiratory 18 18 Rate Blood Pressure 131/77 137/71 O2 Sat by Pulse 97 95 Oximetry Medical Decision Making - Medical Decision Making Case discussed in detail with attending physician Dr. Linda. Patient reexamined at this time shows no signs of distress. Patient does admit to improvement of the swelling to the left lower lip. Patient states feeling well here in the emergency room. It was discussed with patient about further observation. He states he does feel comfortable being discharged home with prescriptions. He states he has Benadryl at home medications continue. He is also advised continue Pepcid twice daily 20 mg along with steroids that will be prescribed. Patient is advised follow-up with family doctor over the next 2 days. Patient advised to return to emergency room if any symptoms increase or worsen or for any other concerns. Patient states understanding and is in agreement with this plan. Disposition Clinical Impression: Angioedema Disposition: HOME SELF-CARE Condition: Good Instructions: Angioedema (ED) Additional Instructions: Please continue Benadryl one to 2 tabs every 6 hours as discussed over the next 3-5 days. Please use Pepcid 1 tab twice a day. Please use steroids as prescribed. Please follow family doctor over the next 2 days. Please return to emergency room if any symptoms increase or worsen or for any other concerns. Prescriptions: Famotidine [Pepcid] 20 mg PO BID #20 tablet predniSONE 40 mg PO DAILY 5 Days Time of Disposition: 18:13
[2016-11-12 18:02] VITALS: BP 137/71; PULSE 69
== END 2016-11-12 18:27 | disposition home or self-care (01) ==
LOC: EC 16:41
DX: T78.3XXA Angioneurotic edema, initial encounter (principal); E11.9 Type 2 diabetes mellitus without complications; J45.909 Unspecified asthma, uncomplicated; Z79.84 Long term (current) use of oral hypoglycemic drugs; Z79.899 Other long term (current) drug therapy; Z88.1 Allergy status to other antibiotic agents; Z88.5 Allergy status to narcotic agent; Z88.6 Allergy status to analgesic agent; Z88.7 Allergy status to serum and vaccine; Z88.8 Allergy status to other drugs, medicaments and biological substances
CPT/HCPCS: 99283; 96374; 96375 ×2; J1200; J2930

== ENCOUNTER 2016-11-30 10:58 | Emergency (ER) | payer MEDICARE ==
--- NOTE | 2016-11-30 13:27 | ED ---
Chest Pain HPI - General Chief Complaint: Chest Pain Stated Complaint: Chest Pain Time Seen by Provider: 11/30/16 12:38 Source: patient, RN notes reviewed Mode of arrival: wheelchair Limitations: no limitations - History of Present Illness Initial Comments: Patient is a 76-year-old male presents to the emergency room for evaluation of chest pain. Patient has been here multiple times for the same complaint. Patient states he began developing chest pain last night. Patient states he took 2 nitro with slight relief of symptoms. Patient states the chest pain came back and woke him up from his sleep. Patient states that he thought he should be evaluated today. Patient denies shortness of breath. Patient Patient denies smoking. Patient states that the chest pain is intermittent. Patient states he had 10 out of 10 chest pain in the waiting room and is no longer having any chest pain right now. Patient denies nausea or vomiting. Patient denies diaphoresis. Patient denies recent heavy lifting or changes in physical activity. Patient denies pain being worse with deep breaths. Patient does state that he has had a cough but states this is chronic for him. Patient denies fevers, chills, weakness, nausea, vomiting, abdominal pain, headache, dizziness. - Related Data Home Medications Medication Instructions Recorded Confirmed Nitroglycerin Sl Tabs [Nitrostat] 0.4 mg SUBLINGUAL Q5M PRN 04/07/14 11/30/16 Hydrochlorothiazide [Hydrodiuril] 12.5 mg PO DAILY 08/01/16 11/30/16 Previous Rx's Medication Instructions Recorded Azithromycin [Zithromax Z-pack] 250 mg PO DIRECTED #6 tab 11/30/16 Allergies Allergy/AdvReac Type Severity Reaction Status Date / Time aspirin Allergy Intermediate Rash/Hives Verified 11/30/16 14:36 cephalexin monohydrate Allergy Intermediate Rash/Hives,SHORTNESS Verified 14:36 [From Keflex] OF BREATH, SWELLING cyclobenzaprine HCl Allergy Intermediate Swelling Verified 11/30/16 14:36 [From Flexeril] hydromorphone HCl Allergy Intermediate Swelling Verified 11/30/16 14:36 [From Dilaudid] ibuprofen [From Motrin] Allergy Intermediate Rash/Hives Verified 11/30/16 14:36 ketorolac tromethamine Allergy Intermediate Swelling Verified 11/30/16 14:36 [From Toradol] meperidine HCl [From Demerol] Allergy Intermediate Swelling Verified 11/30/16 14 :36 Tetanus Vaccines and Toxoid Allergy Intermediate Rash/Hives Verified 11/30/16 14 :36 [Tetanus Vaccines & Toxoid] celecoxib [From Celebrex] Allergy Swelling Verified 11/30/16 14:36 levofloxacin [From Levaquin] Allergy Swelling Verified 11/30/16 14:36 tramadol HCl [From Ultram] Allergy Rash/Hives Verified 11/30/16 14:36 fentanyl AdvReac Intermediate Nausea Verified 11/30/16 14:36 Review of Systems ROS Statement: Those systems with pertinent positive or pertinent negative responses have been documented in the HPI. ROS Other: All systems not noted in ROS Statement are negative. Past Medical History Past Medical History: Asthma, Cancer, Diabetes Mellitus, Hyperlipidemia, Hypertension, Neurologic Disorder, Osteoarthritis (OA), Pneumonia Additional Past Medical History / Comment(s): Other HX: pancreatic cancer with surgery; parkinsons, generalized OA, RA, gout bilateral feet yrs ago, numbness/ tingling hands/feet, moderate PVD, bronchitis, pneumonia in past, pt is diabetic Last Myocardial Infarction Date:: 12/2005 History of Any Multi-Drug Resistant Organisms: None Reported Date of last positivie culture/infection: not sure MDRO Source:: under left arm Past Surgical History: Heart Catheterization, Joint Replacement, Tonsillectomy Additional Past Surgical History / Comment(s): 04/07/14 cath without intervention , 2013 total R knee, total L knee, R ankle ligament sx, R forearm skin graft, 2006 partial pancreas removal and spleenectomy at [facility]. Past Anesthesia/Blood Transfusion Reactions: No Reported Reaction Past Psychological History: Anxiety Additional Psychological History / Comment(s): Pt resides with his spouse. He uses a cane to ambulate. He doesn't own a car so he gets to [facility] by bus. He has meals on wheels. He has no home care agency use. He manages his own medication. His is not well she has alot of arthritis and asthma. Smoking Status: Former smoker Past Alcohol Use History: None Reported Additional Past Alcohol Use History / Comment(s): Pt started smoking in 3 and quit in 1997 Past Drug Use History: None Reported - Past Family History Father Family Medical History: Osteoarthritis (OA) Additional Family Medical History / Comment(s): Father at age 88 yrs. Mother Family Medical History: Cancer Additional Family Medical History / Comment(s): Mother of stomach cancer at age 79 yrs. General Exam - General Exam Comments Initial Comments: Sitting in exam room, no acute distress. Limitations: no limitations General appearance: alert, in no apparent distress Head exam: Present: atraumatic, normocephalic, normal inspection Eye exam: Present: normal appearance ENT exam: Present: normal exam Neck exam: Present: normal inspection Respiratory exam: Present: normal lung sounds bilaterally. Absent: respiratory distress Cardiovascular Exam: Present: regular rate, normal rhythm, normal heart sounds GI/Abdominal exam: Present: soft, normal bowel sounds. Absent: distended, tenderness, guarding, rebound, rigid Extremities exam: Present: normal inspection Back exam: Present: normal inspection Neurological exam: Present: alert, oriented X3, CN II-XII intact, normal gait Psychiatric exam: Present: normal affect, normal mood Skin exam: Present: warm, dry, intact, normal color. Absent: rash Course Vital Signs 11/30/16 11/30/16 11/30/16 11:03 14:22 15:20 Temperature 97.7 F 97.1 F L 98.0 F Pulse Rate 76 69 73 Respiratory 16 20 20 Rate Blood Pressure 135/85 161/61 170/86 O2 Sat by Pulse 96 98 100 Oximetry Chest Pain MDM - MDM Patient is a 76-year-old male presents emergency room for evaluation of chest pain. Cardiac enzymes within normal limits. Chest x-ray significant for left basilar atelectasis or early infiltrate. Will place patient on azithromycin to cover for early developing pneumonia. Patient denies any chest pain since he was examined. Results discussed with patient. Patient states he understands everything that was discussed with him. Return parameters discussed. Case discussed with Dr. Elam. Disposition Clinical Impression: Pneumonia Disposition: HOME SELF-CARE Condition: Good Instructions: Community Acquired Pneumonia (ED) Additional Instructions: Take antibiotics as directed. Please follow-up with primary care provider in 24 -48 hours for reevaluation. If any new symptom arises por symptoms worsen, return to ER as soon as possible. Prescriptions: Azithromycin [Zithromax Z-pack] 250 mg PO DIRECTED #6 tab Referrals: Sendy Galvin MD [Primary Care Provider] - 1-2 days Time of Disposition: 15:31
[2016-11-30 14:13] LABS: Basophils # (A) 0.1 k/uL (0-0.2); Basophils % (A) 1 %; CH 32.7; CHCM 33.7; Eosinophils # (A) 0.6 k/uL (0-0.7); Eosinophils % (A) 6 %; HCT 49.6 % (39.0-53.0); HDW 2.68; HGB 16.1 gm/dL (13.0-17.5); Luc # (Auto) 0.31; Luc % (Auto) 3; Lymphocytes # (A) 2.8 k/uL (1.0-4.8); Lymphocytes % (A) 29 %; MCH 31.8 pg (25.0-35.0); MCHC 32.5 g/dL (31.0-37.0); MCV 97.7 fL (80.0-100.0); Mean Platelet Volume 7.6; Monocytes # (A) 0.6 k/uL (0-1.0); Monocytes % (A) 6 %; Neutrophils # (A) 5.4 k/uL (1.3-7.7); Neutrophils % (A) 55 %; RBC 5.08 m/uL (4.30-5.90); RDW 13.6 % (11.5-15.5); WBC 9.7 k/uL (3.8-10.6)
--- NOTE | 2016-11-30 14:18 | XR ---
EXAMINATION TYPE: XR chest 2V DATE OF EXAM: 11/30/2016 2:02 PM COMPARISON: 125 7 TECHNIQUE: PA and lateral views submitted. HISTORY: Chest pain FINDINGS: Heart is prominent. There is left lower lobe subsegmental consolidation. No pneumothorax. Limited ins piration limits assessment of the interstitium. Arthropathy of the shoulders noted. IMPRESSION: 1. Left basilar atelectasis or early infiltrate.
[2016-11-30 14:20] LABS: Partial Thromboplastin Time 23.1 sec (22.0-30.0); Prothrombin Time 9.9 sec (9.0-12.0)
[2016-11-30 14:23] VITALS: RESP 20
[2016-11-30 14:23] LABS: ALT 35 U/L (21-72); AST 21 U/L (17-59); Alkaline Phosphatase 99 U/L (38-126); Anion Gap 11 mmol/L; Blood Urea Nitrogen 16 mg/dL (9-20); Calcium 9.5 mg/dL (8.4-10.2); Carbon Dioxide 27 mmol/L (22-30); Chloride 103 mmol/L (98-107); Glucose 153 mg/dL (74-99); Magnesium 1.9 mg/dL (1.6-2.3); Non-African American GFR(MDRD) >60 (>60 ml/min/1.73 sqM); Potassium 4.4 mmol/L (3.5-5.1); Sodium 141 mmol/L (137-145); Total Bilirubin 0.9 mg/dL (0.2-1.3); Total Protein 7.3 g/dL (6.3-8.2)
[2016-11-30 14:41] LABS: Creatine Kinase 61 U/L (55-170)
[2016-11-30 14:55] LABS: Creatine Kinase MB 0.7 ng/mL (0.0-2.4); Troponin I <0.012 ng/mL (0.000-0.034)
[2016-11-30 15:21] VITALS: BP 170/86; PULSE 73; TEMP 98
== END 2016-11-30 15:49 | disposition home or self-care (01) ==
LOC: EC 10:58
DX: J18.9 Pneumonia, unspecified organism (principal); R07.9 Chest pain, unspecified; I10 Essential (primary) hypertension; Z85.07 Personal history of malignant neoplasm of pancreas; Z87.891 Personal history of nicotine dependence; Z88.6 Allergy status to analgesic agent; Z88.1 Allergy status to other antibiotic agents; Z88.5 Allergy status to narcotic agent; Z88.7 Allergy status to serum and vaccine; Z88.8 Allergy status to other drugs, medicaments and biological substances
CPT/HCPCS: 36415; 71020; 80053; 82550; 82553; 83735; 84484; 85025; 85610; 85730; 93005; 99285

== ENCOUNTER 2016-12-06 09:35 | Emergency (ER) | payer MEDICARE ==
--- NOTE | 2016-12-06 10:49 | ED ---
General Adult HPI - General Chief complaint: Extremity Injury, Upper Stated complaint: fall Time Seen by Provider: 12/06/16 10:26 Source: patient, RN notes reviewed, old records reviewed Mode of arrival: wheelchair Limitations: physical limitation - History of Present Illness Initial comments: This is a 68-year-old male the ER for evaluation of right elbow pain. Patient is well-known to this emergency room and medical history is well-known, patient slip and fall And fall at work last night. Landing on right elbow complaining of right elbow pain minimal abrasion, patient states that anything for pain at this time is concerned about elbow pain and swelling, forearm pain and swelling. He states he does have range of motion of his hand full range of motion of his elbow. Denies any other complaints or injuries from fall - Related Data Home Medications Medication Instructions Recorded Confirmed Nitroglycerin Sl Tabs [Nitrostat] 0.4 mg SUBLINGUAL Q5M PRN 04/07/14 12/06/16 Hydrochlorothiazide [Hydrodiuril] 12.5 mg PO DAILY 08/01/16 12/06/16 Allergies Allergy/AdvReac Type Severity Reaction Status Date / Time aspirin Allergy Intermediate Rash/Hives Verified 12/06/16 10:39 cephalexin monohydrate Allergy Intermediate Rash/Hives,SHORTNESS Verified 10:39 [From Keflex] OF BREATH, SWELLING cyclobenzaprine HCl Allergy Intermediate Swelling Verified 12/06/16 10:39 [From Flexeril] hydromorphone HCl Allergy Intermediate Swelling Verified 12/06/16 10:39 [From Dilaudid] ibuprofen [From Motrin] Allergy Intermediate Rash/Hives Verified 12/06/16 10:39 ketorolac tromethamine Allergy Intermediate Swelling Verified 12/06/16 10:39 [From Toradol] meperidine HCl [From Demerol] Allergy Intermediate Swelling Verified 12/06/16 10 :39 Tetanus Vaccines and Toxoid Allergy Intermediate Rash/Hives Verified 12/06/16 10 :39 [Tetanus Vaccines & Toxoid] celecoxib [From Celebrex] Allergy Swelling Verified 12/06/16 10:39 levofloxacin [From Levaquin] Allergy Swelling Verified 12/06/16 10:39 tramadol HCl [From Ultram] Allergy Rash/Hives Verified 12/06/16 10:39 fentanyl AdvReac Intermediate Nausea Verified 12/06/16 10:39 Review of Systems ROS Statement: Those systems with pertinent positive or pertinent negative responses have been documented in the HPI. ROS Other: All systems not noted in ROS Statement are negative. Past Medical History Past Medical History: Asthma, Cancer, Diabetes Mellitus, Hyperlipidemia, Hypertension, Neurologic Disorder, Osteoarthritis (OA), Pneumonia Additional Past Medical History / Comment(s): Other HX: pancreatic cancer with surgery; parkinsons, generalized OA, RA, gout bilateral feet yrs ago, numbness/ tingling hands/feet, moderate PVD, bronchitis, pneumonia in past, pt is diabetic Last Myocardial Infarction Date:: 12/2005 History of Any Multi-Drug Resistant Organisms: None Reported Date of last positivie culture/infection: not sure MDRO Source:: under left arm Past Surgical History: Heart Catheterization, Joint Replacement, Tonsillectomy Additional Past Surgical History / Comment(s): 04/07/14 cath without intervention , 2013 total R knee, total L knee, R ankle ligament sx, R forearm skin graft, 2006 partial pancreas removal and spleenectomy at [facility]. Past Anesthesia/Blood Transfusion Reactions: No Reported Reaction Past Psychological History: Anxiety Additional Psychological History / Comment(s): Pt resides with his spouse. He uses a cane to ambulate. He doesn't own a car so he gets to [facility] by bus. He has meals on wheels. He has no home care agency use. He manages his own medication. His is not well she has alot of arthritis and asthma. Smoking Status: Former smoker Past Alcohol Use History: None Reported Additional Past Alcohol Use History / Comment(s): Pt started smoking in 1 and quit in 1997 Past Drug Use History: None Reported - Past Family History Father Family Medical History: Osteoarthritis (OA) Additional Family Medical History / Comment(s): Father at age 88 yrs. Mother Family Medical History: Cancer Additional Family Medical History / Comment(s): Mother of stomach cancer at age 79 yrs. General Exam - General Exam Comments Initial Comments: Minimal abrasion right elbow area, mild swelling full range of motion Limitations: physical limitation General appearance: alert, in no apparent distress Head exam: Present: atraumatic, normocephalic, normal inspection Eye exam: Present: normal appearance, PERRL, EOMI. Absent: scleral icterus, conjunctival injection, periorbital swelling ENT exam: Present: normal exam, mucous membranes moist Neck exam: Present: normal inspection. Absent: tenderness, meningismus, lymphadenopathy Respiratory exam: Present: normal lung sounds bilaterally. Absent: respiratory distress, wheezes, rales, rhonchi, stridor Cardiovascular Exam: Present: regular rate, normal rhythm, normal heart sounds. Absent: systolic murmur, diastolic murmur, rubs, gallop, clicks GI/Abdominal exam: Present: soft, normal bowel sounds. Absent: distended, tenderness, guarding, rebound, rigid Extremities exam: Present: normal inspection, full ROM, normal capillary refill. Absent: tenderness, pedal edema, joint swelling, calf tenderness Back exam: Present: normal inspection Neurological exam: Present: alert, oriented X3, CN II-XII intact Psychiatric exam: Present: normal affect, normal mood Skin exam: Present: warm, dry, intact, normal color. Absent: rash Course Vital Signs 12/06/16 10:04 Temperature 99.1 F Pulse Rate 85 Respiratory 16 Rate Blood Pressure 146/85 O2 Sat by Pulse 97 Oximetry Medical Decision Making - Medical Decision Making 76 male to ER status post fall . patient trip; fall wound gaseous last night . Patient is minimal swelling to the elbow and forearm area.Extremities negative for fracture, apply Ivan bandage and patient can be discharged home - Radiology Data Radiology results: report reviewed (X-ray right elbow, x-ray right forearm negative for fracture), image reviewed Disposition Clinical Impression: Fall, Contusion of right elbow Disposition: HOME SELF-CARE Condition: Good Instructions: Swollen Joint (ED), Contusion in Adults (ED), Fall Prevention for Older Adults (ED)
--- NOTE | 2016-12-06 11:29 | XR ---
EXAMINATION TYPE: XR forearm RT DATE OF EXAM: 12/06/2016 11:22 AM COMPARISON: NONE HISTORY: Pain Two views of the forearm demonstrate that the osseous structures appear to be intact and the joint sp aces appear to be preserved. There is no acute fracture or dislocation. Soft tissue density may rep resent a foreign body mid forearm subcutaneous tissues. Tiny olecranon spur. IMPRESSION: 1. No acute fracture or dislocation 2. Correlate for tiny foreign body within the subcutaneous tissues at the mid forearm level.
--- NOTE | 2016-12-06 11:30 | XR ---
EXAMINATION TYPE: XR elbow complete RT DATE OF EXAM: 12/06/2016 11:21 AM COMPARISON: NONE HISTORY: Pain FINDINGS: Three views of the elbow demonstrate no pathologic joint effusion. The osseous structures are intact . There is no acute fracture or dislocation. Small olecranon spur noted. Tiny bony density in the A P view superimposed over the joint space. Not localized on the additional views. Small loose body in the differential. IMPRESSION: 1. No acute fracture or dislocation. If symptoms persist follow-up study in 7 to 10 days could be ob tained.
[2016-12-06 11:33] VITALS: BP 150/70; PULSE 74; RESP 20; TEMP 97.8
== END 2016-12-06 11:32 | disposition home or self-care (01) ==
LOC: EC 09:35
DX: S50.01XA Contusion of right elbow, initial encounter (principal); Z85.46 Personal history of malignant neoplasm of prostate; Z87.891 Personal history of nicotine dependence; Z88.6 Allergy status to analgesic agent; Z88.1 Allergy status to other antibiotic agents; Z88.5 Allergy status to narcotic agent; Z88.7 Allergy status to serum and vaccine; Z88.8 Allergy status to other drugs, medicaments and biological substances; W01.0XXA Fall on same level from slipping, tripping and stumbling without subsequent striking against object, initial encounter; Y99.0 Civilian activity done for income or pay
CPT/HCPCS: 99284

== ENCOUNTER 2016-12-11 16:15 | Emergency (ER) | payer MEDICARE ==
[2016-12-11 16:24] VITALS: RESP 20; TEMP 97
[2016-12-11] MEDS ORDERED: BUTALB/APAP/CAFF 50-325-40MG TAB PO STA (16:54)
--- NOTE | 2016-12-11 16:57 | ED ---
Headache HPI - General Chief Complaint: Headache Stated Complaint: Sharp Pains in Head Time Seen by Provider: 12/11/16 16:49 Source: patient, RN notes reviewed Mode of arrival: ambulatory Limitations: no limitations - History of Present Illness Initial Comments: 76-year-old male presents emergency Department chief complaint headache. Patient states is getting a squeezing sensation around his head. Patient denies focal weakness. Denies any nausea, vomiting, diarrhea constipation. Denies blurred vision, photophobia, fever, chills, neck pain. He states is getting sharp pains are intermittent and moving area. Patient states he has not taken anything for his headache. Patient offers no complaints. - Related Data Home Medications Medication Instructions Recorded Confirmed Nitroglycerin Sl Tabs [Nitrostat] 0.4 mg SUBLINGUAL Q5M PRN 04/07/14 12/06/16 Hydrochlorothiazide [Hydrodiuril] 12.5 mg PO DAILY 08/01/16 12/06/16 Allergies Allergy/AdvReac Type Severity Reaction Status Date / Time aspirin Allergy Intermediate Rash/Hives Verified 12/11/16 16:24 cephalexin monohydrate Allergy Intermediate Rash/Hives,SHORTNESS Verified 16:24 [From Keflex] OF BREATH, SWELLING cyclobenzaprine HCl Allergy Intermediate Swelling Verified 12/11/16 16:24 [From Flexeril] hydromorphone HCl Allergy Intermediate Swelling Verified 12/11/16 16:24 [From Dilaudid] ibuprofen [From Motrin] Allergy Intermediate Rash/Hives Verified 12/11/16 16:24 ketorolac tromethamine Allergy Intermediate Swelling Verified 12/11/16 16:24 [From Toradol] meperidine HCl [From Demerol] Allergy Intermediate Swelling Verified 12/11/16 16 :24 Tetanus Vaccines and Toxoid Allergy Intermediate Rash/Hives Verified 12/11/16 16 :24 [Tetanus Vaccines & Toxoid] celecoxib [From Celebrex] Allergy Swelling Verified 12/11/16 16:24 levofloxacin [From Levaquin] Allergy Swelling Verified 12/11/16 16:24 tramadol HCl [From Ultram] Allergy Rash/Hives Verified 12/11/16 16:24 fentanyl AdvReac Intermediate Nausea Verified 12/11/16 16:24 Review of Systems ROS Statement: Those systems with pertinent positive or pertinent negative responses have been documented in the HPI. ROS Other: All systems not noted in ROS Statement are negative. Past Medical History Past Medical History: Asthma, Cancer, Diabetes Mellitus, Hyperlipidemia, Hypertension, Neurologic Disorder, Osteoarthritis (OA), Pneumonia Additional Past Medical History / Comment(s): Other HX: pancreatic cancer with surgery; parkinsons, generalized OA, RA, gout bilateral feet yrs ago, numbness/ tingling hands/feet, moderate PVD, bronchitis, pneumonia in past, pt is diabetic Last Myocardial Infarction Date:: 12/2005 History of Any Multi-Drug Resistant Organisms: None Reported Date of last positivie culture/infection: not sure MDRO Source:: under left arm Past Surgical History: Heart Catheterization, Joint Replacement, Tonsillectomy Additional Past Surgical History / Comment(s): 04/07/14 cath without intervention , 2013 total R knee, total L knee, R ankle ligament sx, R forearm skin graft, 2006 partial pancreas removal and spleenectomy at [facility]. Past Anesthesia/Blood Transfusion Reactions: No Reported Reaction Past Psychological History: Anxiety Additional Psychological History / Comment(s): Pt resides with his spouse. He uses a cane to ambulate. He doesn't own a car so he gets to [employer] by bus. He has meals on wheels. He has no home care agency use. He manages his own medication. His is not well she has alot of arthritis and asthma. Smoking Status: Former smoker Past Alcohol Use History: None Reported Additional Past Alcohol Use History / Comment(s): Pt started smoking in 1952 and quit in 1997 Past Drug Use History: None Reported - Past Family History Father Family Medical History: Osteoarthritis (OA) Additional Family Medical History / Comment(s): Father at age 88 yrs. Mother Family Medical History: Cancer Additional Family Medical History / Comment(s): Mother of stomach cancer at age 79 yrs. General Exam Limitations: no limitations General appearance: alert, in no apparent distress Head exam: Present: atraumatic, normocephalic, normal inspection Eye exam: Present: normal appearance, PERRL, EOMI. Absent: scleral icterus, conjunctival injection, periorbital swelling ENT exam: Present: normal exam, normal oropharynx, mucous membranes moist, TM's normal bilaterally, normal external ear exam Neck exam: Present: normal inspection, full ROM. Absent: tenderness, meningismus, lymphadenopathy Respiratory exam: Present: normal lung sounds bilaterally. Absent: respiratory distress, wheezes, rales, rhonchi, stridor Cardiovascular Exam: Present: regular rate, normal rhythm, normal heart sounds. Absent: systolic murmur, diastolic murmur, rubs, gallop, clicks GI/Abdominal exam: Absent: normal bowel sounds Neurological exam: Present: alert, oriented X3, CN II-XII intact, reflexes normal. Absent: motor sensory deficit Skin exam: Present: warm, dry, intact, normal color. Absent: rash Course Vital Signs 12/11/16 16:22 Temperature 97 F L Pulse Rate 83 Respiratory 20 Rate Blood Pressure 172/86 O2 Sat by Pulse 99 Oximetry Medical Decision Making - Medical Decision Making 68-year-old male presented for headache. Patient appears to have tension headache. Patient given fierce that. Patient will be discharged at this time is no neurological deficits no evidence of infection. Patient agrees to plan and discharged. Disposition Clinical Impression: Headache Disposition: HOME SELF-CARE Condition: Stable Instructions: Acute Headache (ED) Additional Instructions: Please return to the Emergency Department if symptoms worsen or any other concerns. Time of Disposition: 16:57
[2016-12-11 17:31] VITALS: BP 164/113; PULSE 80
== END 2016-12-11 17:31 | disposition home or self-care (01) ==
LOC: EC 16:15
DX: R51 Headache (principal); I10 Essential (primary) hypertension; Z85.07 Personal history of malignant neoplasm of pancreas; Z88.6 Allergy status to analgesic agent; Z88.1 Allergy status to other antibiotic agents; Z88.5 Allergy status to narcotic agent; Z88.7 Allergy status to serum and vaccine; Z88.8 Allergy status to other drugs, medicaments and biological substances; Z87.891 Personal history of nicotine dependence; Z79.899 Other long term (current) drug therapy
CPT/HCPCS: 99283

== ENCOUNTER 2016-12-14 14:52 | Emergency (ER) | payer MEDICARE ==
--- NOTE | 2016-12-14 15:24 | ED ---
General Adult HPI - General Stated complaint: Chest Pain Time Seen by Provider: 12/14/16 14:55 Source: patient, family, RN notes reviewed, old records reviewed - History of Present Illness Initial comments: Chief complaint history of present illness a 76-year-old male who reports he had a short episode left than several seconds of discomfort to his left chest. Pain comes and goes. He did take a nitro he thinks it may have helped. This happened on 2 occasions over the last 45 minutes. No associated radiation to the arm neck or back. No associated sweats nausea or vomiting. Pain is mildly reproducible with deep palpation of the left lower anterior rib cage area. he denies any injury. - Related Data Home Medications Medication Instructions Recorded Confirmed Nitroglycerin Sl Tabs [Nitrostat] 0.4 mg SUBLINGUAL Q5M PRN 04/07/14 12/14/16 Hydrochlorothiazide [Hydrodiuril] 12.5 mg PO DAILY 08/01/16 12/14/16 Allergies Allergy/AdvReac Type Severity Reaction Status Date / Time aspirin Allergy Intermediate Rash/Hives Verified 12/14/16 15:47 cephalexin monohydrate Allergy Intermediate Rash/Hives,SHORTNESS Verified 15:47 [From Keflex] OF BREATH, SWELLING cyclobenzaprine HCl Allergy Intermediate Swelling Verified 12/14/16 15:47 [From Flexeril] hydromorphone HCl Allergy Intermediate Swelling Verified 12/14/16 15:47 [From Dilaudid] ibuprofen [From Motrin] Allergy Intermediate Rash/Hives Verified 12/14/16 15:47 ketorolac tromethamine Allergy Intermediate Swelling Verified 12/14/16 15:47 [From Toradol] meperidine HCl [From Demerol] Allergy Intermediate Swelling Verified 12/14/16 15 :47 Tetanus Vaccines and Toxoid Allergy Intermediate Rash/Hives Verified 12/14/16 15 :47 [Tetanus Vaccines & Toxoid] celecoxib [From Celebrex] Allergy Swelling Verified 12/14/16 15:47 levofloxacin [From Levaquin] Allergy Swelling Verified 12/14/16 15:47 tramadol HCl [From Ultram] Allergy Rash/Hives Verified 12/14/16 15:47 fentanyl AdvReac Intermediate Nausea Verified 12/14/16 15:47 Review of Systems ROS Statement: Those systems with pertinent positive or pertinent negative responses have been documented in the HPI. Review of systems. No complaint of headache or visual acuity changes no neck pain. Currently no chest discomfort. No shortness of breath. No abdominal pain no nausea no vomiting and no complaint of any deficits. All systems are reviewed. Past medical problems Past medical problems significant for asthma, diabetes, hyperlipidemia, hypertension, neurologic disorder, OA, pneumonia diagnosed. Recently with good results. Past surgeries include heart catheterization without stents placed he states proximal to years ago. He's had total joint replacement , tonsillectomy. Family history noncontributory. ALLERGIES multiple and on the hard copy and they include, aspirin, Keflex, cyclobenzaprine, hydromorphone, ibuprofen, Toradol,. ROS Other: All systems not noted in ROS Statement are negative. Past Medical History Past Medical History: Asthma, Cancer, Diabetes Mellitus, Hyperlipidemia, Hypertension, Neurologic Disorder, Osteoarthritis (OA), Pneumonia Additional Past Medical History / Comment(s): Other HX: pancreatic cancer with surgery; parkinsons, generalized OA, RA, gout bilateral feet yrs ago, numbness/ tingling hands/feet, moderate PVD, bronchitis, pneumonia in past, pt is diabetic Last Myocardial Infarction Date:: 12/2005 History of Any Multi-Drug Resistant Organisms: None Reported Date of last positivie culture/infection: not sure MDRO Source:: under left arm Past Surgical History: Heart Catheterization, Joint Replacement, Tonsillectomy Additional Past Surgical History / Comment(s): 04/07/14 cath without intervention , 2013 total R knee, total L knee, R ankle ligament sx, R forearm skin graft, 2006 partial pancreas removal and spleenectomy at [facility]. Past Anesthesia/Blood Transfusion Reactions: No Reported Reaction Past Psychological History: Anxiety Additional Psychological History / Comment(s): Pt resides with his spouse. He uses a cane to ambulate. He doesn't own a car so he gets to [facility] by bus. He has meals on wheels. He has no home care agency use. He manages his own medication. His is not well she has alot of arthritis and asthma. Smoking Status: Former smoker Past Alcohol Use History: None Reported Additional Past Alcohol Use History / Comment(s): Pt started smoking in 1952 and quit in 1997 Past Drug Use History: None Reported - Past Family History Father Family Medical History: Osteoarthritis (OA) Additional Family Medical History / Comment(s): Father at age 88 yrs. Mother Family Medical History: Cancer Additional Family Medical History / Comment(s): Mother of stomach cancer at age 79 yrs. General Exam - General Exam Comments Initial Comments: General: The patient is awake and alert, in no distress, and does not appear acutely ill. Early without chest discomfort or pain. He does report that the 2 episodes he had the last hour lasted less than several seconds. He took 2 nitro thinks he may have helped. No associated nausea vomiting sweats or radiation of pain. Vital signs show temperature 97.8 pulse 70 respiratory rate 16 pulse ox 93% on nasal cannula. Blood pressure 159/86. Elevated systolic and diastolic noted. Patient does have hypertension. He'll be referred to his family physician. Eye: Pupils are equal, round and reactive to light, extra-ocular movements are intact ; there is normal conjunctiva bilaterally. No signs of icterus. Ears, nose, mouth and throat: There are moist mucous membranes and no oral lesions. Neck: The neck is supple, there is no tenderness or JVD. Cardiovascular: There is a regular rate and rhythm. No murmur, rub or gallop is appreciated. No complaint chest pain at this time. No rash noted early shingles was discussed. Mild discomfort was re-created with deep palpation over the area of his initial complaint. Respiratory: Lungs are clear to auscultation, respirations are non-labored, breath sounds are equal. No wheezes, stridor, rales, or rhonchi. Gastrointestinal: Soft, non-distended, non-tender abdomen without masses or organomegaly noted. There is no rebound or guarding present. No CVA tenderness. Bowel sounds are unremarkable. Back: There is no tenderness to palpation in the midline. There is no obvious deformity. No rashes noted. Musculoskeletal: Normal ROM, no tenderness, There is no pedal edema. There is no calf tenderness or swelling. Sensation intact. Pulses equal bilaterally 2+. Neurological: CN II-XII intact, There are no obvious motor or sensory deficits. Coordination appears grossly intact. Speech is normal. Skin: Skin is warm and dry and no rashes or lesions are noted. Course Vital Signs 12/14/16 12/14/16 14:56 16:29 Temperature 97.8 F 99.0 F Pulse Rate 70 92 Respiratory 16 16 Rate Blood Pressure 159/86 178/83 O2 Sat by Pulse 93 L 98 Oximetry EKG Findings - EKG Comments: EKG Findings:: EKG was done and reviewed at 1531 showing normal sinus rhythm with right bundle branch block no acute ST elevation no ectopy no ischemic changes. Rate 64 NJ interval 178 QRS is 134 QT [address] Elam. This EKG was compared to one done just approximately 2 weeks ago. On the 15 of this month and they have very similar. Medical Decision Making - Medical Decision Making Chest x-ray was done and reviewed by radiologist. His findings are the lungs are over inflatable. The heart is enlarged. Lungs appear clear. Pleural spaces are clear. Impression; COPD and cardiomegaly. As read by Dr. Urias Medical decision-making. The patient's white count 7.1 hemoglobin 15 hematocrit of 46, potassium 4.4, BUN 20 creatinine 0.88 GFR greater than 60. Glucose mildly elevated 168. Patient advised to control his sugar better. His family physician. Also CK 66 troponin less than 0.012. Patient remained chest pain-free. We discussed costochondritis and angina. 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 - Lab Data Result diagrams: 12/14/16 15:55 12/14/16 15:55 Lab Results 12/14/16 12/14/16 12/14/16 Range/Units 15:55 15:55 15:55 WBC 7.1 (3.8-10.6) k/uL RBC 4.87 (4.30-5.90) m/uL Hgb 15.3 (13.0-17.5) gm/dL Hct 46.9 (39.0-53.0) % MCV 96.3 (80.0-100.0) fL MCH 31.4 (25.0-35.0) pg MCHC 32.6 (31.0-37.0) g/dL RDW 13.4 (11.5-15.5) % Plt Count 385 (150-450) k/uL Neutrophils % 42 % Lymphocytes % 39 % Monocytes % 7 % Eosinophils % 9 % Basophils % 1 % Neutrophils # 3.0 (1.3-7.7) k/uL Lymphocytes # 2.8 (1.0-4.8) k/uL Monocytes # 0.5 (0-1.0) k/uL Eosinophils # 0.6 (0-0.7) k/uL Basophils # 0.1 (0-0.2) k/uL Sodium 137 (137-145) mmol/L Potassium 4.4 (3.5-5.1) mmol/L Chloride 102 (98-107) mmol/L Carbon Dioxide 26 (22-30) mmol/L Anion Gap 9 mmol/L BUN 20 (9-20) mg/dL Creatinine 0.88 (0.66-1.25) mg/dL Est GFR (MDRD) Af Amer >60 (>60 ml/min/1.73 sqM) Est GFR (MDRD) Non-Af >60 (>60 ml/min/1.73 sqM) Glucose 164 H (74-99) mg/dL Calcium 9.1 (8.4-10.2) mg/dL Total Bilirubin 0.8 (0.2-1.3) mg/dL AST 19 (17-59) U/L ALT 28 (21-72) U/L Alkaline Phosphatase 84 (38-126) U/L Total Creatine Kinase 63 (55-170) U/L CK-MB (CK-2) 0.5 (0.0-2.4) ng/mL CK-MB (CK-2) Rel Index 0.8 Troponin I <0.012 (0.000-0.034) ng/mL Total Protein 6.5 (6.3-8.2) g/dL Albumin 3.4 L (3.5-5.0) g/dL Disposition Clinical Impression: Stable angina Disposition: HOME SELF-CARE Condition: Good Instructions: Angina (ED), Chest Pain (ED) Additional Instructions: Follow-up with the family physician and her telegraphic typewriter mechanic. Continue with medications. Return emergency room if he have any changes near condition. Time of Disposition: 17:13
--- NOTE | 2016-12-14 16:01 | XR ---
EXAMINATION TYPE: XR chest 2V DATE OF EXAM: 12/14/2016 3:50 PM HISTORY: Chest Pain. REFERENCE: Previous study dated 11/30/2016. FINDINGS: The lungs are overinflated. The heart is enlarged. Lungs appear clear. Pleural spaces are c lear. IMPRESSION: 1. COPD. 2. CARDIOMEGALY.
[2016-12-14] MEDS: ACETAMINOPHEN TAB 500 MG TAB PO STA (16:23)
[2016-12-14 16:25] LABS: Basophils # (A) 0.1 k/uL (0-0.2); Basophils % (A) 1 %; CH 32.1; CHCM 33.5; Eosinophils # (A) 0.6 k/uL (0-0.7); Eosinophils % (A) 9 %; HCT 46.9 % (39.0-53.0); HDW 2.61; HGB 15.3 gm/dL (13.0-17.5); Luc # (Auto) 0.18; Luc % (Auto) 3; Lymphocytes # (A) 2.8 k/uL (1.0-4.8); Lymphocytes % (A) 39 %; MCH 31.4 pg (25.0-35.0); MCHC 32.6 g/dL (31.0-37.0); MCV 96.3 fL (80.0-100.0); Mean Platelet Volume 7.3; Monocytes # (A) 0.5 k/uL (0-1.0); Monocytes % (A) 7 %; Neutrophils % (A) 42 %; RBC 4.87 m/uL (4.30-5.90); RDW 13.4 % (11.5-15.5); WBC 7.1 k/uL (3.8-10.6); WBC (Perox) 7.03
[2016-12-14 16:30] LABS: ALT 28 U/L (21-72); AST 19 U/L (17-59); Alkaline Phosphatase 84 U/L (38-126); Anion Gap 9 mmol/L; Blood Urea Nitrogen 20 mg/dL (9-20); Calcium 9.1 mg/dL (8.4-10.2); Carbon Dioxide 26 mmol/L (22-30); Chloride 102 mmol/L (98-107); Glucose 164 mg/dL (74-99); Non-African American GFR(MDRD) >60 (>60 ml/min/1.73 sqM); Potassium 4.4 mmol/L (3.5-5.1); Sodium 137 mmol/L (137-145); Total Bilirubin 0.8 mg/dL (0.2-1.3); Total Protein 6.5 g/dL (6.3-8.2)
[2016-12-14 16:44] LABS: Creatine Kinase 63 U/L (55-170)
[2016-12-14 16:58] LABS: Creatine Kinase MB 0.5 ng/mL (0.0-2.4); Troponin I <0.012 ng/mL (0.000-0.034)
[2016-12-14 17:26] VITALS: BP 158/70; PULSE 78; RESP 20; TEMP 98.2
== END 2016-12-14 17:25 | disposition home or self-care (01) ==
LOC: EC 14:52
DX: I20.8 Other forms of angina pectoris (principal); I10 Essential (primary) hypertension; J44.9 Chronic obstructive pulmonary disease, unspecified; I51.7 Cardiomegaly; R73.9 Hyperglycemia, unspecified; Z87.891 Personal history of nicotine dependence; Z79.899 Other long term (current) drug therapy; Z88.1 Allergy status to other antibiotic agents; Z88.5 Allergy status to narcotic agent; Z88.6 Allergy status to analgesic agent; Z88.7 Allergy status to serum and vaccine; Z88.8 Allergy status to other drugs, medicaments and biological substances; Z85.07 Personal history of malignant neoplasm of pancreas; Z90.49 Acquired absence of other specified parts of digestive tract
CPT/HCPCS: 36415; 71020; 80053; 82550; 82553; 84484; 85025; 93005; 99285

== ENCOUNTER 2016-12-16 03:43 | Emergency (ER) | payer MEDICARE ==
[2016-12-16 04:10] LABS: Basophils # (A) 0.1 k/uL (0-0.2); Basophils % (A) 1 %; CH 32.4; CHCM 33.7; Eosinophils # (A) 0.6 k/uL (0-0.7); Eosinophils % (A) 5 %; HCT 49.6 % (39.0-53.0); HDW 2.68; HGB 16.1 gm/dL (13.0-17.5); Luc % (Auto) 2; Lymphocytes # (A) 2.5 k/uL (1.0-4.8); Lymphocytes % (A) 24 %; MCH 31.3 pg (25.0-35.0); MCHC 32.3 g/dL (31.0-37.0); MCV 96.7 fL (80.0-100.0); Mean Platelet Volume 7.6; Monocytes # (A) 0.6 k/uL (0-1.0); Monocytes % (A) 6 %; Neutrophils # (A) 6.4 k/uL (1.3-7.7); Neutrophils % (A) 62 %; RBC 5.14 m/uL (4.30-5.90); RDW 13.5 % (11.5-15.5); WBC 10.4 k/uL (3.8-10.6); WBC (Perox) 10.01
[2016-12-16 04:23] LABS: Partial Thromboplastin Time 23.3 sec (22.0-30.0); Prothrombin Time 10.1 sec (9.0-12.0)
[2016-12-16 04:25] LABS: ALT 27 U/L (21-72); AST 21 U/L (17-59); Alkaline Phosphatase 83 U/L (38-126); Amylase 84 U/L (30-110); Anion Gap 11 mmol/L; Blood Urea Nitrogen 17 mg/dL (9-20); Calcium 8.7 mg/dL (8.4-10.2); Carbon Dioxide 25 mmol/L (22-30); Chloride 102 mmol/L (98-107); Glucose 296 mg/dL (74-99); Magnesium 1.8 mg/dL (1.6-2.3); Non-African American GFR(MDRD) >60 (>60 ml/min/1.73 sqM); Sodium 138 mmol/L (137-145); Total Bilirubin 0.7 mg/dL (0.2-1.3)
[2016-12-16 04:31] LABS: Potassium 4.2 mmol/L (3.5-5.1)
[2016-12-16 04:35] LABS: Creatine Kinase 70 U/L (55-170)
--- NOTE | 2016-12-16 04:38 | XR ---
EXAM: XR Chest, 1 View. CLINICAL HISTORY: Reason: chest pain TECHNIQUE: Frontal view of the chest. COMPARISON: 12/14/16. FINDINGS: Lungs: Mild left basilar opacities, possible atelectasis or infiltrate. Pleural space: Unremarkable. No pneumothorax. Heart: Stable enlarged cardiac silhouette. Mediastinum: Unremarkable. Bones/joints: Stable. IMPRESSION: Mild left basilar opacities, possible atelectasis or infiltrate.
[2016-12-16 04:48] LABS: Creatine Kinase MB 0.6 ng/mL (0.0-2.4); Troponin I <0.012 ng/mL (0.000-0.034)
--- NOTE | 2016-12-16 05:33 | ED ---
Chest Pain HPI - General Chief Complaint: Chest Pain Stated Complaint: chest pain Time Seen by Provider: 12/16/16 03:49 Source: patient, EMS Mode of arrival: EMS Limitations: no limitations - History of Present Illness Initial Comments: This patient 76-year-old man who presents with complaint that he is having a recurrence of his chronic left-sided chest pain. It came on between our 2 ago while he was watching television. The patient states that he took nitroglycerin as instructed, but after the pain did not resolve with 2 of these he decided to call EMS. He states that the pain is not changed. The pain is sharp aching. He states it is constant and moderate to severe. Patient has not found any worsening or relieving factors. There are no coming symptoms. MD Complaint: chest pain Onset/Timin -: hour(s) Onset: during rest Pain Location: left chest Pain Radiation: none Severity: moderate Quality: aching Consistency: constant Improves With: nothing Worsens With: nothing Treatments Prior to Arrival: nitroglycerin - Related Data Home Medications Medication Instructions Recorded Confirmed Nitroglycerin Sl Tabs [Nitrostat] 0.4 mg SUBLINGUAL Q5M PRN 04/07/14 12/14/16 Hydrochlorothiazide [Hydrodiuril] 12.5 mg PO DAILY 08/01/16 12/14/16 Allergies Allergy/AdvReac Type Severity Reaction Status Date / Time aspirin Allergy Intermediate Rash/Hives Verified 12/14/16 15:47 cephalexin monohydrate Allergy Intermediate Rash/Hives,SHORTNESS Verified 15:47 [From Keflex] OF BREATH, SWELLING cyclobenzaprine HCl Allergy Intermediate Swelling Verified 12/14/16 15:47 [From Flexeril] hydromorphone HCl Allergy Intermediate Swelling Verified 12/14/16 15:47 [From Dilaudid] ibuprofen [From Motrin] Allergy Intermediate Rash/Hives Verified 12/14/16 15:47 ketorolac tromethamine Allergy Intermediate Swelling Verified 12/14/16 15:47 [From Toradol] meperidine HCl [From Demerol] Allergy Intermediate Swelling Verified 12/14/16 15 :47 Tetanus Vaccines and Toxoid Allergy Intermediate Rash/Hives Verified 12/14/16 15 :47 [Tetanus Vaccines & Toxoid] celecoxib [From Celebrex] Allergy Swelling Verified 12/14/16 15:47 levofloxacin [From Levaquin] Allergy Swelling Verified 12/14/16 15:47 tramadol HCl [From Ultram] Allergy Rash/Hives Verified 12/14/16 15:47 fentanyl AdvReac Intermediate Nausea Verified 12/14/16 15:47 Review of Systems ROS Statement: Those systems with pertinent positive or pertinent negative responses have been documented in the HPI. ROS Other: All systems not noted in ROS Statement are negative. Constitutional: Denies: fever, chills Respiratory: Denies: cough, dyspnea Cardiovascular: Reports: as per HPI, chest pain. Denies: palpitations, orthopnea, edema, syncope Gastrointestinal: Denies: abdominal pain, nausea, vomiting Musculoskeletal: Denies: back pain Skin: Denies: rash Neurological: Denies: headache, weakness, numbness EKG Findings - EKG Comments: EKG Findings:: Unchanged versus comparison 12/14/2016 - EKG Results: EKG: interpreted by ERMMichael, sinus rhythm (Rate 78 bpm), normal axis, normal ST/T - Blocks, [place], Hypertrophy, ST Abn: AV and intraventricular conduction: right bundle branch block (fixed/ intermittent, complete/incomplete) Past Medical History Past Medical History: Asthma, Cancer, Diabetes Mellitus, Hyperlipidemia, Hypertension, Neurologic Disorder, Osteoarthritis (OA), Pneumonia Additional Past Medical History / Comment(s): Other HX: pancreatic cancer with surgery; parkinsons, generalized OA, RA, gout bilateral feet yrs ago, numbness/ tingling hands/feet, moderate PVD, bronchitis, pneumonia in past, pt is diabetic Last Myocardial Infarction Date:: 12/2005 History of Any Multi-Drug Resistant Organisms: None Reported Date of last positivie culture/infection: not sure MDRO Source:: under left arm Past Surgical History: Heart Catheterization, Joint Replacement, Tonsillectomy Additional Past Surgical History / Comment(s): 04/07/14 cath without intervention , 2013 total R knee, total L knee, R ankle ligament sx, R forearm skin graft, 2006 partial pancreas removal and spleenectomy at [facility]. Past Anesthesia/Blood Transfusion Reactions: No Reported Reaction Past Psychological History: Anxiety Additional Psychological History / Comment(s): Pt resides with his spouse. He uses a cane to ambulate. He doesn't own a car so he gets to [facility] by bus. He has meals on wheels. He has no home care agency use. He manages his own medication. His is not well she has alot of arthritis and asthma. Smoking Status: Former smoker Past Alcohol Use History: None Reported Additional Past Alcohol Use History / Comment(s): Pt started smoking in 1952 and quit in 1997 Past Drug Use History: None Reported - Past Family History Father Family Medical History: Osteoarthritis (OA) Additional Family Medical History / Comment(s): Father at age 88 yrs. Mother Family Medical History: Cancer Additional Family Medical History / Comment(s): Mother of stomach cancer at age 79 yrs. General Exam Limitations: no limitations General appearance: alert, in no apparent distress Head exam: Present: atraumatic, normocephalic Eye exam: Present: normal appearance. Absent: scleral icterus, conjunctival injection ENT exam: Present: normal oropharynx Neck exam: Present: normal inspection Respiratory exam: Present: normal lung sounds bilaterally. Absent: respiratory distress, wheezes, rales, rhonchi, stridor Cardiovascular Exam: Present: regular rate, normal rhythm, normal heart sounds. Absent: systolic murmur, diastolic murmur, rubs, gallop GI/Abdominal exam: Present: soft. Absent: distended, tenderness, guarding, rebound, mass Extremities exam: Present: normal inspection, normal capillary refill. Absent: pedal edema, calf tenderness Back exam: Present: normal inspection. Absent: CVA tenderness (R), CVA tenderness (L) Skin exam: Present: warm, dry, intact, normal color. Absent: rash Course Vital Signs 12/16/16 12/16/16 03:45 07:31 Temperature 97.7 F Pulse Rate 81 74 Respiratory 24 16 Rate Blood Pressure 164/92 143/85 O2 Sat by Pulse 94 L 95 Oximetry Disposition Clinical Impression: Chest pain, Hyperglycemia due to type 2 diabetes mellitus Disposition: HOME SELF-CARE Condition: Good Instructions: Chest Pain (ED) Referrals: Sendy Galvin MD [Primary Care Provider] - 1-2 days
[2016-12-16] MEDS ORDERED: INSULIN REGULAR 100 UNIT/ML VIAL SQ STA (07:45)
[2016-12-16 08:59] LABS: Glucose,Whole Blood 192 mg/dL (75-99)
[2016-12-16 09:02] VITALS: BP 165/85; PULSE 79; RESP 18; TEMP 97.4
[2016-12-16 09:57] LABS: Glucose,Whole Blood 218 mg/dL (75-99)
== END 2016-12-16 10:07 | disposition home or self-care (01) ==
LOC: EC 03:43
DX: E11.65 Type 2 diabetes mellitus with hyperglycemia (principal); R07.9 Chest pain, unspecified; I10 Essential (primary) hypertension; Z87.891 Personal history of nicotine dependence; Z79.899 Other long term (current) drug therapy; Z88.1 Allergy status to other antibiotic agents; Z88.8 Allergy status to other drugs, medicaments and biological substances; Z88.6 Allergy status to analgesic agent; Z88.5 Allergy status to narcotic agent; Z88.7 Allergy status to serum and vaccine; Z95.818 Presence of other cardiac implants and grafts
CPT/HCPCS: 36415; 71010; 80053; 82150; 82550; 82553; 83690; 83735; 84484; 85025; 85379; 85610; 85730; 93005; 99285

== ENCOUNTER 2016-12-22 11:00 | Observation (INO) | payer MEDICARE ==
--- NOTE | 2016-12-22 11:37 | ED ---
General Adult HPI - General Chief complaint: Chest Pain Stated complaint: CHEST PAIN TOOK 2 NITRO Time Seen by Provider: 12/22/16 11:14 Source: patient, RN notes reviewed Mode of arrival: wheelchair Limitations: no limitations - History of Present Illness Initial comments: Patient 76-year-old male who presents emergency room today with a chief complaint of chest pain. He does admit that he had chest pain this morning when he woke up. He states that he took 2 nitro. He states it's not give him any relief. States pain eventually went away. He was on his way here to the hospital to see his was admitted upstairs on one of the floors. States that when he was getting up to the floor she had chest pain once again. Since currently a 5/10 located in the left side of his chest wall. States had similar pain in the past. States is worse with palpation. He denies any other complaints or symptoms. Patient denies any recent fever, chills, shortness of breath, back pain, abdominal pain, nausea or vomiting, numbness or tingling, dysuria or hematuria, constipation or diarrhea, headaches or visual changes, or any other complaints. - Related Data Home Medications Medication Instructions Recorded Confirmed Nitroglycerin Sl Tabs [Nitrostat] 0.4 mg SUBLINGUAL Q5M PRN 04/07/14 12/22/16 Hydrochlorothiazide [Hydrodiuril] 12.5 mg PO DAILY 08/01/16 12/22/16 Allergies Allergy/AdvReac Type Severity Reaction Status Date / Time aspirin Allergy Intermediate Rash/Hives Verified 12/22/16 11:34 cephalexin monohydrate Allergy Intermediate Rash/Hives,SHORTNESS Verified 11:34 [From Keflex] OF BREATH, SWELLING cyclobenzaprine HCl Allergy Intermediate Swelling Verified 12/22/16 11:34 [From Flexeril] hydromorphone HCl Allergy Intermediate Swelling Verified 12/22/16 11:34 [From Dilaudid] ibuprofen [From Motrin] Allergy Intermediate Rash/Hives Verified 12/22/16 11:34 ketorolac tromethamine Allergy Intermediate Swelling Verified 12/22/16 11:34 [From Toradol] meperidine HCl [From Demerol] Allergy Intermediate Swelling Verified 12/22/16 11 :34 Tetanus Vaccines and Toxoid Allergy Intermediate Rash/Hives Verified 12/22/16 11 :34 [Tetanus Vaccines & Toxoid] celecoxib [From Celebrex] Allergy Swelling Verified 12/22/16 11:34 levofloxacin [From Levaquin] Allergy Swelling Verified 12/22/16 11:34 tramadol HCl [From Ultram] Allergy Rash/Hives Verified 12/22/16 11:34 fentanyl AdvReac Intermediate Nausea Verified 12/22/16 11:34 Review of Systems ROS Statement: Those systems with pertinent positive or pertinent negative responses have been documented in the HPI. ROS Other: All systems not noted in ROS Statement are negative. Past Medical History Past Medical History: Asthma, Cancer, Diabetes Mellitus, Hyperlipidemia, Hypertension, Neurologic Disorder, Osteoarthritis (OA), Pneumonia Additional Past Medical History / Comment(s): Other HX: pancreatic cancer with surgery; parkinsons, generalized OA, RA, gout bilateral feet yrs ago, numbness/ tingling hands/feet, moderate PVD, bronchitis, pneumonia in past, pt is diabetic Last Myocardial Infarction Date:: 12/2005 History of Any Multi-Drug Resistant Organisms: None Reported Date of last positivie culture/infection: not sure MDRO Source:: under left arm Past Surgical History: Heart Catheterization, Joint Replacement, Tonsillectomy Additional Past Surgical History / Comment(s): 04/07/14 cath without intervention , 2013 total R knee, total L knee, R ankle ligament sx, R forearm skin graft, 2006 partial pancreas removal and spleenectomy at [facility]. Past Anesthesia/Blood Transfusion Reactions: No Reported Reaction Past Psychological History: Anxiety Additional Psychological History / Comment(s): Pt resides with his spouse. He uses a cane to ambulate. He doesn't own a car so he gets to [facility] by bus. He has meals on wheels. He has no home care agency use. He manages his own medication. His is not well she has alot of arthritis and asthma. Smoking Status: Former smoker Past Alcohol Use History: None Reported Additional Past Alcohol Use History / Comment(s): Pt started smoking in 1 and quit in 1997 Past Drug Use History: None Reported - Past Family History Father Family Medical History: Osteoarthritis (OA) Additional Family Medical History / Comment(s): Father at age 88 yrs. Mother Family Medical History: Cancer Additional Family Medical History / Comment(s): Mother of stomach cancer at age 79 yrs. General Exam - General Exam Comments Initial Comments: General: The patient is awake and alert, in no distress, and does not appear acutely ill. Eye: Pupils are equal, round and reactive to light, extra-ocular movements are intact. No nystagmus. There is normal conjunctiva bilaterally. No signs of icterus. Ears, nose, mouth and throat: There are moist mucous membranes and no oral lesions. Neck: The neck is supple, there is no tenderness or JVD. Cardiovascular: There is a regular rate and rhythm. No murmur, rub or gallop is appreciated. Palpation on the anterior chest wall left which does reproduce his pain. Respiratory: Lungs are clear to auscultation, respirations are non-labored, breath sounds are equal. No wheezes, stridor, rales, or rhonchi. Gastrointestinal: Soft, non-distended, non-tender abdomen without masses or organomegaly noted. There is no rebound or guarding present. No CVA tenderness. Bowel sounds are unremarkable. Musculoskeletal: Normal ROM, no tenderness. Strength 5/5. Sensation intact. Pulses equal bilaterally 2+. Neurological: A&O x 3. CN II-XII intact, There are no obvious motor or sensory deficits. Coordination appears grossly intact. Speech is normal. Skin: Skin is warm and dry and no rashes or lesions are noted. Psychiatric: Cooperative, appropriate mood & affect, normal judgment. Limitations: no limitations Course Vital Signs 12/22/16 12/22/16 12/22/16 11:07 12:21 12:58 Temperature 98.0 F Pulse Rate 86 78 78 Respiratory 20 18 18 Rate Blood Pressure 126/72 131/79 142/77 O2 Sat by Pulse 96 96 96 Oximetry EKG Findings - EKG Comments: EKG Findings:: EKG performed at 11:15: Shows normal sinus rhythm at 83 bpm. VT interval 184. QRS 132. QT/QTc 430/505. Evidence for right bundle branch block. Compared to previous EKG on 12/16/2016 and shows no changes. Medical Decision Making - Medical Decision Making Patient reexamined at this time shows no signs of stress. States still experiencing some left-sided chest wall pain. He states this is the same pain that is experienced in the past. He does admit that it's been approximate one year since he seen his manager latin. Patient EKG reviewed and shows normal sinus rhythm with a right bundle branch block. There is no acute changes. Asians labs reviewed negative cardiac enzymes here in emergency room. No relief with nitroglycerin. Options were discussed with patient about admission for serial enzymes. States he does not feel comfortable being discharged would like to stay. Patient will be admitted. Case discussed with attending physician - Lab Data Result diagrams: 12/22/16 12:35 12/22/16 12:35 Lab Results 12/22/16 12/22/16 12/22/16 Range/Units 12:35 12:35 12:35 WBC 9.6 (3.8-10.6) k/uL RBC 4.83 (4.30-5.90) m/uL Hgb 15.7 (13.0-17.5) gm/dL Hct 47.8 (39.0-53.0) % MCV 99.0 (80.0-100.0) fL MCH 32.5 (25.0-35.0) pg MCHC 32.8 (31.0-37.0) g/dL RDW 13.8 (11.5-15.5) % Plt Count 359 (150-450) k/uL Neutrophils % 57 % Lymphocytes % 31 % Monocytes % 6 % Eosinophils % 3 % Basophils % 1 % Neutrophils # 5.5 (1.3-7.7) k/uL Lymphocytes # 3.0 (1.0-4.8) k/uL Monocytes # 0.6 (0-1.0) k/uL Eosinophils # 0.3 (0-0.7) k/uL Basophils # 0.1 (0-0.2) k/uL PT 10.7 (9.0-12.0) sec INR 1.1 (<1.1) APTT 24.0 (22.0-30.0) sec Sodium 140 (137-145) mmol/L Potassium 4.3 (3.5-5.1) mmol/L Chloride 103 (98-107) mmol/L Carbon Dioxide 25 (22-30) mmol/L Anion Gap 12 mmol/L BUN 19 (9-20) mg/dL Creatinine 0.90 (0.66-1.25) mg/dL Est GFR (MDRD) Af Amer >60 (>60 ml/min/1.73 sqM) Est GFR (MDRD) Non-Af >60 (>60 ml/min/1.73 sqM) Glucose 159 H (74-99) mg/dL Calcium 9.2 (8.4-10.2) mg/dL Magnesium 1.9 (1.6-2.3) mg/dL Total Bilirubin 0.9 (0.2-1.3) mg/dL AST 24 (17-59) U/L ALT 31 (21-72) U/L Alkaline Phosphatase 68 (38-126) U/L Total Creatine Kinase (55-170) U/L CK-MB (CK-2) (0.0-2.4) ng/mL CK-MB (CK-2) Rel Index Troponin I (0.000-0.034) ng/mL Total Protein 6.7 (6.3-8.2) g/dL Albumin 3.6 (3.5-5.0) g/dL 12/22/16 Range/Units 12:35 WBC (3.8-10.6) k/uL RBC (4.30-5.90) m/uL Hgb (13.0-17.5) gm/dL Hct (39.0-53.0) % MCV (80.0-100.0) fL MCH (25.0-35.0) pg MCHC (31.0-37.0) g/dL RDW (11.5-15.5) % Plt Count (150-450) k/uL Neutrophils % % Lymphocytes % % Monocytes % % Eosinophils % % Basophils % % Neutrophils # (1.3-7.7) k/uL Lymphocytes # (1.0-4.8) k/uL Monocytes # (0-1.0) k/uL Eosinophils # (0-0.7) k/uL Basophils # (0-0.2) k/uL PT (9.0-12.0) sec INR (<1.1) APTT (22.0-30.0) sec Sodium (137-145) mmol/L Potassium (3.5-5.1) mmol/L Chloride (98-107) mmol/L Carbon Dioxide (22-30) mmol/L Anion Gap mmol/L BUN (9-20) mg/dL Creatinine (0.66-1.25) mg/dL Est GFR (MDRD) Af Amer (>60 ml/min/1.73 sqM) Est GFR (MDRD) Non-Af (>60 ml/min/1.73 sqM) Glucose (74-99) mg/dL Calcium (8.4-10.2) mg/dL Magnesium (1.6-2.3) mg/dL Total Bilirubin (0.2-1.3) mg/dL AST (17-59) U/L ALT (21-72) U/L Alkaline Phosphatase (38-126) U/L Total Creatine Kinase 113 (55-170) U/L CK-MB (CK-2) 1.5 (0.0-2.4) ng/mL CK-MB (CK-2) Rel Index 1.3 Troponin I <0.012 (0.000-0.034) ng/mL Total Protein (6.3-8.2) g/dL Albumin (3.5-5.0) g/dL Disposition Clinical Impression: Chest pain Disposition: ADMITTED IP TO THIS [facility] Condition: Stable Time of Disposition: 14:05
--- NOTE | 2016-12-22 12:17 | XR ---
EXAMINATION TYPE: XR chest 2V DATE OF EXAM: 12/22/2016 12:11 PM COMPARISON: 12/16/2016 TECHNIQUE: PA and lateral views submitted. HISTORY: Chest pain FINDINGS: The lungs are clear and there is no pneumothorax, pleural effusion, or focal pneumonia. The heart i s enlarged. There is ectasia of the aorta. Arthropathy of the shoulders. Hypertrophic and degenerativ e change of the spine. Chronic rib deformities are noted. IMPRESSION: 1. No acute process. Mild cardiomegaly. Subsegmental changes at the lung bases for which atelectasis favored over pneumonia.
[2016-12-22 12:44] LABS: Basophils # (A) 0.1 k/uL (0-0.2); Basophils % (A) 1 %; CH 32.2; CHCM 32.7; Eosinophils # (A) 0.3 k/uL (0-0.7); Eosinophils % (A) 3 %; HCT 47.8 % (39.0-53.0); HDW 2.48; HGB 15.7 gm/dL (13.0-17.5); Luc # (Auto) 0.19; Luc % (Auto) 2; Lymphocytes % (A) 31 %; MCH 32.5 pg (25.0-35.0); MCHC 32.8 g/dL (31.0-37.0); Monocytes # (A) 0.6 k/uL (0-1.0); Monocytes % (A) 6 %; Neutrophils # (A) 5.5 k/uL (1.3-7.7); Neutrophils % (A) 57 %; RBC 4.83 m/uL (4.30-5.90); RDW 13.8 % (11.5-15.5); WBC 9.6 k/uL (3.8-10.6); WBC (Perox) 9.61
[2016-12-22 12:48] LABS: INR 1.1 (<1.1); Prothrombin Time 10.7 sec (9.0-12.0)
[2016-12-22 12:53] LABS: ALT 31 U/L (21-72); AST 24 U/L (17-59); Alkaline Phosphatase 68 U/L (38-126); Anion Gap 12 mmol/L; Blood Urea Nitrogen 19 mg/dL (9-20); Calcium 9.2 mg/dL (8.4-10.2); Carbon Dioxide 25 mmol/L (22-30); Chloride 103 mmol/L (98-107); Glucose 159 mg/dL (74-99); Magnesium 1.9 mg/dL (1.6-2.3); Non-African American GFR(MDRD) >60 (>60 ml/min/1.73 sqM); Potassium 4.3 mmol/L (3.5-5.1); Sodium 140 mmol/L (137-145); Total Bilirubin 0.9 mg/dL (0.2-1.3); Total Protein 6.7 g/dL (6.3-8.2)
[2016-12-22] MEDS ORDERED: NITROGLYCERIN SL TABS 0.4 MG TAB SUBLINGUAL STA (12:56)
[2016-12-22 13:25] LABS: Creatine Kinase 113 U/L (55-170)
[2016-12-22 13:36] LABS: Creatine Kinase MB 1.5 ng/mL (0.0-2.4); Troponin I <0.012 ng/mL (0.000-0.034)
[2016-12-22] MEDS ORDERED: HEPARIN SODIUM,PORCINE 5,000 UNIT/ML 1 ML VIAL IV ONE (14:13)
[2016-12-22] MEDS ORDERED: NITROGLYCERIN SL TABS 0.4 MG TAB SUBLINGUAL PRN ×2 (14:13→17:15)
[2016-12-22] MEDS ORDERED: SODIUM CHLORIDE 0.9% 1,000 ML IV ONE (14:13)
[2016-12-22] MEDS ORDERED: HEPARIN SODIUM,PORCINE/D5W PMX 25,000 UNIT in DEXTROSE/WATER 1 500ML.BAG IV SCH (14:15)
[2016-12-22] MEDS ORDERED: MORPHINE SULFATE 4 MG/ML SYRINGE IV STA (14:29)
[2016-12-22 17:03] LABS: Glucose,Whole Blood 216 mg/dL (75-99)
[2016-12-22] MEDS ORDERED: ALBUTEROL NEBULIZED 2.5 MG/3 ML INHALATION PRN (17:15)
[2016-12-22] MEDS: MORPHINE SULFATE 2 MG/ML SYRINGE IVP PRN ×2 (17:44→22:39)
[2016-12-22 19:00] LABS: Creatine Kinase 89 U/L (55-170)
[2016-12-22 19:13] LABS: Troponin I <0.012 ng/mL (0.000-0.034)
[2016-12-22] MEDS: HYDROCHLOROTHIAZIDE 12.5 MG CAP PO SCH (20:24)
[2016-12-22] MEDS: LOSARTAN 50 MG TAB PO SCH (20:24)
[2016-12-22] MEDS ORDERED: ALPRAZolam 0.25 MG TAB PO PRN (20:57)
[2016-12-22] MEDS ORDERED: TEMAZEPAM 15 MG CAP PO PRN (20:57)
[2016-12-22 21:00] LABS: Glucose,Whole Blood 230 mg/dL (75-99)
[2016-12-23] MEDS: SYMBICORT 160-4.5 MCG INHALER INHALATION SCH ×2 (00:21→08:21)
[2016-12-23] MEDS: MORPHINE SULFATE 2 MG/ML SYRINGE IVP PRN ×2 (01:13→06:46)
[2016-12-23 01:16] LABS: Creatine Kinase 72 U/L (55-170)
[2016-12-23 01:30] LABS: Creatine Kinase MB 0.9 ng/mL (0.0-2.4); Troponin I <0.012 ng/mL (0.000-0.034)
[2016-12-23 06:12] LABS: Anion Gap 7 mmol/L; Blood Urea Nitrogen 21 mg/dL (9-20); Calcium 8.8 mg/dL (8.4-10.2); Carbon Dioxide 26 mmol/L (22-30); Chloride 101 mmol/L (98-107); Cholesterol 93 mg/dL (<200); Glucose 172 mg/dL (74-99); HDL Cholesterol 39 mg/dL (40-60); Non-African American GFR(MDRD) >60 (>60 ml/min/1.73 sqM); Potassium 4.3 mmol/L (3.5-5.1); Sodium 134 mmol/L (137-145); Triglycerides 93 mg/dL (<150)
[2016-12-23 06:44] LABS: Basophils # (A) 0.1 k/uL (0-0.2); Basophils % (A) 1 %; CHCM 32.7; Eosinophils # (A) 0.6 k/uL (0-0.7); Eosinophils % (A) 7 %; HCT 44.7 % (39.0-53.0); HDW 2.52; HGB 14.8 gm/dL (13.0-17.5); Luc # (Auto) 0.26; Luc % (Auto) 3; Lymphocytes % (A) 37 %; MCH 32.5 pg (25.0-35.0); MCHC 33.1 g/dL (31.0-37.0); MCV 98.3 fL (80.0-100.0); Mean Platelet Volume 7.4; Monocytes # (A) 0.6 k/uL (0-1.0); Monocytes % (A) 7 %; Neutrophils # (A) 3.7 k/uL (1.3-7.7); Neutrophils % (A) 45 %; RBC 4.54 m/uL (4.30-5.90); RDW 13.6 % (11.5-15.5); WBC 8.2 k/uL (3.8-10.6); WBC (Perox) 8.17
[2016-12-23 07:28] LABS: Glucose,Whole Blood 190 mg/dL (75-99)
[2016-12-23] MEDS ORDERED: GLIMEPIRIDE 1 MG TAB PO SCH (07:30)
--- NOTE | 2016-12-23 08:55 | HP ---
DATE OF ADMISSION: DATE OF SERVICE: 12/22/2016 Chief complaint is chest pain. HISTORY OF PRESENT ILLNESS: This is a 76-year-old gentleman with a past medical history of multiple medical problems, including asthma, diabetes mellitus type 2, hypertension, hyperlipidemia, history of DJD, history of pneumonia, history of rheumatoid arthritis, history of pancreatic cancer with surgery, history of Parkinson's, history of gout, history of cardiac catheterization and stent placement being followed by Dr. Galvin in the outpatient setting, who is complaining of left-sided chest pain after waking up this morning. The pain is rather sharp, radiating to sides also. The patient's pain was 5/10 in intensity. There is no other associated setting of palpation, history of headache, loss of consciousness. Patient came to [facility], admitted for further evaluation and troponins are negative at this time. Regarding the cardiac history, patient apparently had a stress test and cardiac catheterization in last May, results are not available at this time. PAST MEDICAL HISTORY: History of asthma, diabetes mellitus, hypertension, hyperlipidemia, DJD, history of pneumonia, history or rheumatoid arthritis, pancreatic cancer, CAD, anxiety. Medications prior to admission include home medications are: 1. Cozaar 50 mg p.o. daily. 2. Amaryl 1 mg p.o. a.c. breakfast. 3. Symbicort 160/4.5 two puffs b.i.d. 4. Albuterol 1 to 2 puffs q.6 p.r.n. 5. Nitrostat 0.4 sublingual p.r.n. 6. HydroDIURIL 12.5 mg daily. ALLERGIES: Multiple allergies aspirin, cephalexin, cyclobenzaprine, hydromorphone, ibuprofen, ketorolac, meperidine. FAMILY HISTORY: History of DJD in the family. SOCIAL HISTORY: Patient used to smoke, no history of smoking or alcohol currently. REVIEW OF SYSTEMS: ENT: No diminishing hearing or diminished vision. CARDIOVASCULAR: As mentioned earlier. RESPIRATORY: As mentioned earlier. GI: No nausea. : No dysuria. NERVOUS SYSTEM: No numbness or weakness. ALLERGY/IMMUNOLOGY: No asthma or hayfever. MUSCULOSKELETAL: As mentioned earlier. HEMATOLOGY: No history of anemia. ENDOCRINE: As mentioned earlier. CONSTITUTIONAL: As mentioned earlier. DERMATOLOGY: Negative. RHEUMATOID: Negative. PSYCHIATRY: As mentioned earlier. PHYSICAL EXAM: Patient is alert and oriented x3. Pulse 98, blood pressure 140/87, respirations 16, temperature is 97.4, pulse ox 92% on 2 L. HEENT: Conjunctivae normal NECK: No jugular venous distension. CARDIOVASCULAR SYSTEM: S1, S2, muffled. RESPIRATORY: Breath sounds diminished at the bases. A few rhonchi, no crackles. Abdomen is soft, nontender, no mass palpable. EXTREMITIES: Legs no edema. No swelling. NERVOUS SYSTEM: Higher functions as mentioned, moves all 4 limbs, no focal motor deficits. LYMPHATICS: No lymph node enlargement in the neck, axillae or groin. SKIN: No ulcer, rash or bleeding. Labs are CBC within normal limits and glucose 149. ASSESSMENT: 1. Left-sided chest pain, rule out unstable angina. Assess coronary artery disease or possibly musculoskeletal. 2. History of coronary artery disease and cardiac catheterization. 3. History of asthma, chronic intermittent. 4. History of diabetes mellitus type 2. 5. Hypertension, essential. 6. Hyperlipidemia. 7. History of degenerative joint disease. 8. History of Parkinson's. 9. History of rheumatoid arthritis. 10. History of pancreatic cancer and surgery. 11. History of gout. 12. History of joint replacement. 13. Anxiety, not otherwise specified. 14. Remote history nicotine dependence. 15. Obesity with body mass index of 38.8. 16. FULL CODE. RECOMMENDATION: In this 76-year-old gentleman who presented with multiple complex medical issues, will monitor the patient closely. Continue with the current medications, continue with the symptomatic treatment. Rule out otherwise acute coronary artery syndrome protocol. Cardiology consultation. Will reconcile the home medications, symptomatic treatment. Prognosis guarded because of multiple complex medical issues. Discussed with the patient. A copy of this will be forwarded to Dr. Galvin who is the primary physician. HARVINDER
[2016-12-23] MEDS ORDERED: ASPIRIN 325 MG TAB PO SCH (09:00)
[2016-12-23 09:12] VITALS: BMI 38.7
--- NOTE | 2016-12-23 11:19 | CONS ---
DATE OF CONSULTATION: 76-year-old gentleman with history of hypertension, type 2 diabetes, hyperlipidemia who used to see Dr. Adan Matos in the outpatient setting with his last office visit in February 2014. This gentleman came to see his yesterday who was in the hospital. He felt a little more short winded. He uses a cane to get around. He is not very ambulatory because of degenerative joint disease. However, while he was sitting there with his , he felt some sharp pains in the chest and went to the emergency room and has been admitted. His pain is very atypical. He seems to be more pleuritic in character. His troponin levels are all within normal limits. He is resting comfortably without any symptoms. He has no further chest pain this morning. He gets around with a cane, but is not very sedentary. At the time of my evaluation, he is resting comfortably without symptoms. His shortness of breath also has resolved. EKG revealed sinus mechanism with a right bundle branch block pattern very similar to the previous EKGs. PAST MEDICAL HISTORY: 1. Hypertension. 2. Hyperlipidemia. 3. Type 2 diabetes. 4. Degenerative joint disease. 5. 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 Medications at home include: 1. Losartan HCTZ 50/12.5. 2. Amaryl 1 mg daily. 3. Albuterol inhaler. 4. Symbicort inhaler. 5. Hydrochloride . 6. He does not take any statin agents on a regular basis but his LDL cholesterol is less than 100. On examination, blood pressure is 124/70, pulse rate is 78 per minute, regular. HEENT: Unremarkable. Fundus was not examined by me. Neck is supple. There is no JVD. I do not hear a carotid bruit. Heart exam reveals S1, S2 with distant heart sounds. There is no significant murmur audible. Lungs reveal decent air entry in bilateral lung sanchez. ABDOMEN: Soft, nontender. Lower extremities reveal diminished pulses. No edema. Central nervous system is grossly within normal limits. EKG revealed sinus mechanism, right bundle, no acute changes. Echocardiogram performed in March 2016 revealed ejection fraction in the range of 50% to 55% without pulmonary hypertension, mild aortic valve sclerosis was noted without stenosis. He also had a cardiac cath performed March 2014 which revealed that circumflex came off from the right cusp, but no obstructive coronary artery disease was noted. The right coronary was a dominant vessel. IMPRESSION: 1. Chest pain syndrome seems atypical, pleuritic in nature. 2. Hypertension. 3. Type 2 diabetes mellitus. 4. Degenerative joint disease. RECOMMENDATIONS: Patient's pain is atypical, troponins are normal. Echo recently was unremarkable. Clinically, he is not in heart failure. However, I am recommending that we will discontinue IV heparin, increase activity, perform a d-dimer and echocardiogram to rule out any pericardial issues or rule out any and DVT/pulmonary embolism type problem. If these tests are normal, patient can be discharged. In June 2016 he came in with a similar pleuritic pain, had a CT angiography which revealed no evidence of pulmonary embolism. I will check a d-dimer and echo and if these are unremarkable, patient can be discharged. Thank you very much for the consult.
[2016-12-23] MEDS: HYDROCHLOROTHIAZIDE 12.5 MG CAP PO SCH (11:52)
[2016-12-23] MEDS: LOSARTAN 50 MG TAB PO SCH (11:52)
[2016-12-23 12:13] LABS: Glucose,Whole Blood 142 mg/dL (75-99)
--- NOTE | 2016-12-23 13:50 | ECHOF ---
Referral Reason:pain/shortness of breath/post procedure MEASUREMENTS -------- HEIGHT: 182.9 cm WEIGHT: 129.3 kg BP: 122/68 RVIDd: 3.8 cm (< 3.3) IVSd: 1.4 cm (0.6 - 1.1) LVIDd: 5.5 cm (3.9 - 5.3) LVPWd: 1.3 cm (0.6 - 1.1) IVSs: 2.4 cm LVIDs: 4.0 cm LVPWs: 1.8 cm LA Diam: 3.4 cm (2.7 - 3.8) LAESV Index (A-L): 19.11 ml/m Ao Diam: 3.6 cm (2.0 - 3.7) AV Cusp: 2.0 cm (1.5 - 2.6) LA Diam: 2.8 cm (2.7 - 3.8) MV EXCURSION: 11.453 mm (> 18.000) MV EF SLOPE: 14 mm/s (70 - 150) EPSS: 1.3 cm MV E Mikel: 0.52 m/s MV DecT: 221 ms MV A Mikel: 0.80 m/s MV E/A Ratio: 0.65 FINDINGS -------- Sinus rhythm. This was a technically difficult study with suboptimal views. There is moderate concentric left ventricular hypertrophy. Overall left ventricular systolic function is low-normal with, an EF between 50 - 55 %. The right ventricle is mildly enlarged. Normal LA size by volume 22+/-6 ml/m2. The right atrium is normal in size. 1.5mg of Definity was utilized for enhancement of images Aortic valve is trileaflet and is mildly thickened. There is mild aortic regurgitation. The mitral valve leaflets are mildly thickened. Mild mitral annular calcification present. There is trace mitral regurgitation. Trace tricuspid regurgitation present. The pulmonic valve was not well visualized. The aortic root size is normal. IVC Not well visulized. There is no pericardial effusion. CONCLUSIONS -------- 1. Sinus rhythm. 2. There is mild aortic regurgitation. 3. The mitral valve leaflets are mildly thickened. 4. Mild mitral annular calcification present. 5. There is trace mitral regurgitation. 6. Trace tricuspid regurgitation present. 7. The pulmonic valve was not well visualized. 8. The aortic root size is normal. 9. IVC Not well visulized. 10. There is no pericardial effusion. 11. This was a technically difficult study with suboptimal views. 12. There is moderate concentric left ventricular hypertrophy. 13. Overall left ventricular systolic function is low-normal with, an EF between 50 - 55 %. 14. The right ventricle is mildly enlarged. 15. Normal LA size by volume 22+/-6 ml/m2. 16. The right atrium is normal in size. 17. 1.5mg of Definity was utilized for enhancement of images 18. Aortic valve is trileaflet and is mildly thickened. CHILD AND FAMILY SERVICES SPECIALIST: David Cardoza RDCS
[2016-12-23] MEDS ORDERED: RX INFO: IV CONTRAST WAS GIVEN 1 EACH MISC MISCELLANE PRN (13:58)
[2016-12-23] MEDS ORDERED: HEPARIN SODIUM,PORCINE/D5W PMX 25,000 UNIT in DEXTROSE/WATER 1 500ML.BAG IV SCH (14:15)
[2016-12-23 16:31] VITALS: BP 124/68; PULSE 69; RESP 18; TEMP 98.4
--- NOTE | 2016-12-23 16:40 | CT ---
EXAMINATION TYPE: CT angio chest DATE OF EXAM: 12/23/2016 4:14 PM COMPARISON: Prior CTA chest July 18, 2016. HISTORY: Pt states of chest pains. CT DLP: 573.2 mGycm. Automated Exposure Control for Dose Reduction was Utilized. CONTRAST: CTA scan of the thorax is performed with IV Contrast, patient injected with 70 mL of Omnipaque 350, p ulmonary embolism protocol. MIP Images are created on CT scanner and reviewed. FINDINGS: LUNGS: Evaluation suboptimal as there is significant respiratory motion artifact degradation. There i s dependent atelectatic change seen in both lower lobes. Some central ground glass opacity bilaterall y is suspicious for mild edema. No significant pleural effusion or pneumothorax is seen bilaterally. No obvious parenchymal mass is present. Evaluation for nodularity is suboptimal. MEDIASTINUM: There is suboptimal bolus with heterogeneity and near equal contrast seen in right left heart systems but there is no convincing CT evidence for large central pulmonary embolism. Smaller s egmental and subsegmental PE cannot be excluded on this exam. There are no greater than 1 cm hilar or mediastinal lymph nodes. No pericardial effusion is seen. Heart size is borderline. There is mild to moderate right ventricular dilatation seen. OTHER: Multilevel spurring in the thoracic spine is noted. Liver is low dense suggesting fatty infilt ration. IMPRESSION: 1. Suboptimal study, there is no CT evidence for large central pulmonary embolism, smaller segmental and subsegmental PE cannot be entirely excluded on this exam though is felt likely not present. 2. Heart size is borderline with mild central alveolar edema, consider mild CHF exacerbation. Clinica l correlation advised.
[2016-12-23] MEDS ORDERED: FUROSEMIDE 10 MG/ML 4 ML VIAL IV STA (17:05)
[2016-12-23 17:08] LABS: Glucose,Whole Blood 146 mg/dL (75-99)
--- NOTE | 2016-12-24 11:40 | DS ---
DATE OF ADMISSION: 12/22/2016 DATE OF DISCHARGE: 12/23/2016 DATE OF SERVICE: 12/23/2016 FINAL DIAGNOSES: 1. Left-sided chest pain, possibly musculoskeletal. Myocardial infarction ruled out. 2. History of coronary artery disease and cardiac catheterization. 3. History of asthma, chronic intermittent. 4. History of diabetes mellitus type 2. 5. Hypertension, essential. 6. Hyperlipidemia. 7. History of degenerative joint disease. 8. History of Parkinson's. 9. History of rheumatoid arthritis. 10. History of pancreatic cancer and surgery. 11. History of gout. 12. History of joint replacement. 13. Anxiety, not otherwise specified. 14. Remote history of nicotine dependence. 15. Obesity with body mass index of 38.8. 16. FULL CODE. DISCHARGE DISPOSITION: The patient will be discharged in a stable condition with guarded prognosis. Discharge cleared by Cardiology. HISTORY OF PRESENT ILLNESS: This 76-year-old gentleman with past medical history of multiple medical problems admitted with left-sided chest pain, myocardial infarction ruled out. Otherwise, cardiology performed a 2-D echo and Cardiology recommended outpatient followup. I discussed the case at length with Dr. Jen Matos. Echocardiogram showed normal ejection fraction 50% to 55% . On exam, vitals are stable. CARDIOVASCULAR SYSTEM: S1, S2 muffled. ABDOMEN: Soft. NERVOUS SYSTEM; No focal deficits. DISCHARGE ADVICE: 1. Diet is cardiac. 2. Activity limited until followup. 3. Follow up with Dr. Galvin in 2 to 3 days. 4. Follow with Dr. Jen Matos as advised. Medications are: 1. Albuterol 1 to 2 puffs q.i.d. p.r.n. 2. Symbicort 2 puffs b.i.d. 3. Amaryl 1 mg a.c. daily. 4. HydroDIURIL 12.5 mg daily. 5. Cozaar 50 mg daily. 6. Nitrostat 0.4 sublingual p.r.n. Once again, patient will be discharged in a stable condition with guarded prognosis.
== END 2016-12-23 19:40 | disposition home or self-care (01) ==
LOC: EC 11:00 → 3OBS 14:23
PROVIDERS: ADMIT Internal Medicine; ATTEND Internal Medicine
DX: R07.89 Other chest pain (principal); I25.10 Atherosclerotic heart disease of native coronary artery without angina pectoris; J44.9 Chronic obstructive pulmonary disease, unspecified; J45.20 Mild intermittent asthma, uncomplicated; E11.51 Type 2 diabetes mellitus with diabetic peripheral angiopathy without gangrene; E66.9 Obesity, unspecified; Z68.38 Body mass index [BMI] 38.0-38.9, adult; E78.5 Hyperlipidemia, unspecified; F41.9 Anxiety disorder, unspecified; G20 Parkinson's disease; I10 Essential (primary) hypertension; I25.2 Old myocardial infarction; I45.10 Unspecified right bundle-branch block; M06.9 Rheumatoid arthritis, unspecified; M10.9 Gout, unspecified; M15.9 Polyosteoarthritis, unspecified; Z79.84 Long term (current) use of oral hypoglycemic drugs; Z79.899 Other long term (current) drug therapy; Z87.891 Personal history of nicotine dependence; Z95.5 Presence of coronary angioplasty implant and graft; Z88.6 Allergy status to analgesic agent; Z88.1 Allergy status to other antibiotic agents; Z88.3 Allergy status to other anti-infective agents; Z88.5 Allergy status to narcotic agent; Z88.7 Allergy status to serum and vaccine; Z88.8 Allergy status to other drugs, medicaments and biological substances; Z79.51 Long term (current) use of inhaled steroids; Z85.07 Personal history of malignant neoplasm of pancreas
CPT/HCPCS: 96376; 96365; 96375; 99285; 36415; 94640; 94760; 93005; 85379; 80061; 80053; 80048; 82550 ×2; 82553 ×2; 83735; 84484 ×2; 85025 ×2; 85610; 85730 ×2; 71020; 71275; G0378 ×2; C8929; J2270 ×3; J1644 ×3; J1940; Q9967; Q9957; 93306; 96366

== ENCOUNTER 2016-12-26 11:36 | Emergency (ER) | payer MEDICARE ==
[2016-12-26 13:19] LABS: Glucose,Whole Blood 193 mg/dL (75-99)
--- NOTE | 2016-12-26 13:23 | ED ---
General Adult HPI - General Chief complaint: Dizziness Stated complaint: NEAR SYNCOPE Time Seen by Provider: 12/26/16 12:30 Source: patient, RN notes reviewed Mode of arrival: wheelchair Limitations: no limitations - History of Present Illness Initial comments: This is a 76-year-old male who states he was up visiting his upstairs and he started feeling little dizzy. Patient states she did not become near syncopal. Patient denies any chest pain. Patient denies difficulty breathing or shortness of breath. He stated he did have to take a few deep breaths but had no shortness of breath. Patient states all symptoms have currently resolved. Patient denies any fever chills or cough. Patient denies abdominal pain patient denies nausea vomiting or diarrhea. Patient denies any recent injury or trauma. Patient denies any headache patient denies any numbness or weakness. - Related Data Home Medications Medication Instructions Recorded Confirmed Nitroglycerin Sl Tabs [Nitrostat] 0.4 mg SUBLINGUAL Q5M PRN 04/07/14 12/26/16 Hydrochlorothiazide [Hydrodiuril] 12.5 mg PO DAILY 08/01/16 12/26/16 Glimepiride [Amaryl] 1 mg PO AC-BRKFST 12/22/16 12/26/16 Allergies Allergy/AdvReac Type Severity Reaction Status Date / Time aspirin Allergy Intermediate Rash/Hives Verified 12/26/16 12:41 cephalexin monohydrate Allergy Intermediate Rash/Hives,SHORTNESS Verified 12:41 [From Keflex] OF BREATH, SWELLING cyclobenzaprine HCl Allergy Intermediate Swelling Verified 12/26/16 12:41 [From Flexeril] hydromorphone HCl Allergy Intermediate Swelling Verified 12/26/16 12:41 [From Dilaudid] ibuprofen [From Motrin] Allergy Intermediate Rash/Hives Verified 12/26/16 12:41 ketorolac tromethamine Allergy Intermediate Swelling Verified 12/26/16 12:41 [From Toradol] meperidine HCl [From Demerol] Allergy Intermediate Swelling Verified 12/26/16 12 :41 Tetanus Vaccines and Toxoid Allergy Intermediate Rash/Hives Verified 12/26/16 12 :41 [Tetanus Vaccines & Toxoid] celecoxib [From Celebrex] Allergy Swelling Verified 12/26/16 12:41 levofloxacin [From Levaquin] Allergy Swelling Verified 12/26/16 12:41 tramadol HCl [From Ultram] Allergy Rash/Hives Verified 12/26/16 12:41 fentanyl AdvReac Intermediate Nausea Verified 12/26/16 12:41 Review of Systems ROS Statement: Those systems with pertinent positive or pertinent negative responses have been documented in the HPI. ROS Other: All systems not noted in ROS Statement are negative. Past Medical History Past Medical History: Asthma, Cancer, Diabetes Mellitus, Hyperlipidemia, Hypertension, Neurologic Disorder, Osteoarthritis (OA), Pneumonia, Rheumatoid Arthritis (RA) Additional Past Medical History / Comment(s): Other HX: pancreatic cancer with surgery; parkinsons, generalized OA, gout bilateral feet yrs ago, numbness/ tingling hands/feet, moderate PVD, bronchitis, pneumonia in past, NIDDM type II. Last Myocardial Infarction Date:: 12/2005 History of Any Multi-Drug Resistant Organisms: None Reported Date of last positivie culture/infection: not sure MDRO Source:: under left arm Past Surgical History: Heart Catheterization, Joint Replacement, Tonsillectomy Additional Past Surgical History / Comment(s): 04/07/14 cath without intervention , 2013 total R knee, total L knee, R ankle ligament sx, R forearm skin graft, 2006 partial pancreas removal and spleenectomy at [facility]. Past Anesthesia/Blood Transfusion Reactions: No Reported Reaction Past Psychological History: Anxiety Additional Psychological History / Comment(s): Pt resides with his spouse. She is currently hospitalized. He uses a cane to ambulate. He doesn't own a car so he gets to [facility] by bus. He has meals on wheels. He has no home care agency use. He manages his own medication. Smoking Status: Former smoker Past Alcohol Use History: None Reported Additional Past Alcohol Use History / Comment(s): Pt started smoking in 3 and quit in 1997 Past Drug Use History: None Reported - Past Family History Father Family Medical History: Osteoarthritis (OA) Additional Family Medical History / Comment(s): Father at age 88 yrs. Mother Family Medical History: Cancer Additional Family Medical History / Comment(s): Mother of stomach cancer at age 79 yrs. General Exam - General Exam Comments Initial Comments: GENERAL: Patient is well-developed and well-nourished. Patient is nontoxic and well- hydrated and is in no acute distress. Patient was sound asleep when I walked in the room ENT: Neck is soft and supple. No significant lymphadenopathy is noted. Oropharynx is clear. Moist mucous membranes. Neck has full range of motion without eliciting any pain. EYES: The sclera were anicteric and conjunctiva were pink and moist. Extraocular movements were intact and pupils were equal round and reactive to light. Eyelids were unremarkable. PULMONARY: Unlabored respirations. Good breath sounds bilaterally. No audible rales rhonchi or wheezing was noted. CARDIOVASCULAR: There is a regular rate and rhythm without any murmurs gallops or rubs. ABDOMEN: Soft and nontender with normal bowel sounds. No palpable organomegaly was noted. There is no palpable pulsatile mass. SKIN: Skin is clear with no lesions or rashes and otherwise unremarkable. NEUROLOGIC: Patient is alert and oriented x3. Cranial nerves II through XII are grossly intact. Motor and sensory are also intact. Normal speech, volume and content. Symmetrical smile. MUSCULOSKELETAL: Normal extremities with adequate strength and full range of motion. LYMPHATICS: No significant lymphadenopathy is noted PSYCHIATRIC: Normal psychiatric evaluation. Normal interpersonal interactions appears functionally intact in deals appropriately with others. No signs of depression. No signs of anxiety. Limitations: no limitations Course Vital Signs 12/26/16 12:16 Temperature 97.8 F Pulse Rate 92 Respiratory 16 Rate Blood Pressure 111/72 O2 Sat by Pulse 95 Oximetry Medical Decision Making - Medical Decision Making EKG shows normal sinus rhythm at 84 bpm UT interval is 186 QRS is 138 QT interval 410 QTC is 484. Patient's EKG shows no ST segment elevation or depression or T wave abnormalities are noted. Disposition Clinical Impression: Dizziness Disposition: HOME SELF-CARE Condition: Good Instructions: Dizziness (ED) Time of Disposition: 13:22
[2016-12-26 14:19] VITALS: BP 132/59; PULSE 89; RESP 18; TEMP 98.9
== END 2016-12-26 14:09 | disposition home or self-care (01) ==
LOC: EC 11:36
DX: R42 Dizziness and giddiness (principal); E11.9 Type 2 diabetes mellitus without complications; I10 Essential (primary) hypertension; Z88.1 Allergy status to other antibiotic agents; Z88.5 Allergy status to narcotic agent; Z88.6 Allergy status to analgesic agent; Z88.7 Allergy status to serum and vaccine; Z88.8 Allergy status to other drugs, medicaments and biological substances; Z79.84 Long term (current) use of oral hypoglycemic drugs; Z79.899 Other long term (current) drug therapy; Z87.891 Personal history of nicotine dependence
CPT/HCPCS: 36415; 93005; 99284

== ENCOUNTER 2017-01-10 16:55 | Emergency (ER) | payer MEDICARE ==
[2017-01-10 17:01] VITALS: BP 135/83; PULSE 92; RESP 18; TEMP 98.8
--- NOTE | 2017-01-10 17:16 | ED ---
ENT HPI - General Chief complaint: ENT Stated complaint: Swollen Nose Time Seen by Provider: 01/10/17 17:09 Source: patient, RN notes reviewed Mode of arrival: ambulatory Limitations: no limitations - History of Present Illness Initial comments: 76-year-old male presents to the emergency Department chief complaint of pain. Thepatient is nauseous pain. Patient any drainage discharge any trauma or injury to the nose. Patient states that he has other symptoms at this time. Patient denies any recent fever, chills, shortness of breath, chest pain, back pain, abdominal pain, nausea vomiting, numbness or tingling, dysuria or hematuria, constipation or diarrhea, headaches or visual changes, or any other current symptoms. - Related Data Home Medications Medication Instructions Recorded Confirmed Nitroglycerin Sl Tabs [Nitrostat] 0.4 mg SUBLINGUAL Q5M PRN 04/07/14 12/26/16 Hydrochlorothiazide [Hydrodiuril] 12.5 mg PO DAILY 08/01/16 12/26/16 Glimepiride [Amaryl] 1 mg PO AC-BRKFST 12/22/16 12/26/16 Allergies Allergy/AdvReac Type Severity Reaction Status Date / Time aspirin Allergy Intermediate Rash/Hives Verified 01/10/17 17:01 cephalexin monohydrate Allergy Intermediate Rash/Hives,SHORTNESS Verified 17:01 [From Keflex] OF BREATH, SWELLING cyclobenzaprine HCl Allergy Intermediate Swelling Verified 01/10/17 17:01 [From Flexeril] hydromorphone HCl Allergy Intermediate Swelling Verified 01/10/17 17:01 [From Dilaudid] ibuprofen [From Motrin] Allergy Intermediate Rash/Hives Verified 01/10/17 17:01 ketorolac tromethamine Allergy Intermediate Swelling Verified 01/10/17 17:01 [From Toradol] meperidine HCl [From Demerol] Allergy Intermediate Swelling Verified 01/10/17 17 :01 Tetanus Vaccines and Toxoid Allergy Intermediate Rash/Hives Verified 01/10/17 17 :01 [Tetanus Vaccines & Toxoid] celecoxib [From Celebrex] Allergy Swelling Verified 01/10/17 17:01 levofloxacin [From Levaquin] Allergy Swelling Verified 01/10/17 17:01 tramadol HCl [From Ultram] Allergy Rash/Hives Verified 01/10/17 17:01 fentanyl AdvReac Intermediate Nausea Verified 01/10/17 17:01 Review of Systems ROS Statement: Those systems with pertinent positive or pertinent negative responses have been documented in the HPI. ROS Other: All systems not noted in ROS Statement are negative. Past Medical History Past Medical History: Asthma, Cancer, Diabetes Mellitus, Hyperlipidemia, Hypertension, Neurologic Disorder, Osteoarthritis (OA), Pneumonia, Rheumatoid Arthritis (RA) Additional Past Medical History / Comment(s): Other HX: pancreatic cancer with surgery; parkinsons, generalized OA, gout bilateral feet yrs ago, numbness/ tingling hands/feet, moderate PVD, bronchitis, pneumonia in past, NIDDM type II. Last Myocardial Infarction Date:: 12/2005 History of Any Multi-Drug Resistant Organisms: None Reported Date of last positivie culture/infection: not sure MDRO Source:: under left arm Past Surgical History: Heart Catheterization, Joint Replacement, Tonsillectomy Additional Past Surgical History / Comment(s): 04/07/14 cath without intervention , 2013 total R knee, total L knee, R ankle ligament sx, R forearm skin graft, 2006 partial pancreas removal and spleenectomy at [facility]. Past Anesthesia/Blood Transfusion Reactions: No Reported Reaction Past Psychological History: Anxiety Additional Psychological History / Comment(s): Pt resides with his spouse. She is currently hospitalized. He uses a cane to ambulate. He doesn't own a car [place]. He has meals on wheels. He has no home care agency use. He manages his own medication. Smoking Status: Former smoker Past Alcohol Use History: None Reported Additional Past Alcohol Use History / Comment(s): Pt started smoking in 3 and quit in 1997 Past Drug Use History: None Reported - Past Family History Father Family Medical History: Osteoarthritis (OA) Additional Family Medical History / Comment(s): Father at age 88 yrs. Mother Family Medical History: Cancer Additional Family Medical History / Comment(s): Mother of stomach cancer at age 79 yrs. General Exam Limitations: no limitations General appearance: alert, in no apparent distress Eye exam: Present: normal appearance, PERRL, EOMI. Absent: scleral icterus, conjunctival injection, periorbital swelling ENT exam: Present: other (She does appear to have an area of dry scabbing crusting along the right near.) Neck exam: Present: normal inspection. Absent: tenderness, meningismus, lymphadenopathy Respiratory exam: Present: normal lung sounds bilaterally. Absent: respiratory distress, wheezes, rales, rhonchi, stridor Cardiovascular Exam: Present: regular rate, normal rhythm, normal heart sounds. Absent: systolic murmur, diastolic murmur, rubs, gallop, clicks Neurological exam: Present: alert, oriented X3 Psychiatric exam: Present: normal affect, normal mood Skin exam: Present: warm, dry, intact, normal color. Absent: rash Course Vital Signs 01/10/17 16:58 Temperature 98.8 F Pulse Rate 92 Respiratory 18 Rate Blood Pressure 135/83 O2 Sat by Pulse 95 Oximetry Medical Decision Making - Medical Decision Making 68-year-old male presents for what appears to be dryness of the skin next to his right near. This time we discussed could apply bacitracin to the area for lubrication to prevent any infection. We discussed follow-up with Dr. coats parameters all patient's questions. He stated he understood and is negative plan. This time and will be discharged home. Disposition Clinical Impression: Dry skin Disposition: HOME SELF-CARE Condition: Stable Instructions: Bacitracin (On the skin) Additional Instructions: Please use medication as discussed. Please follow up with family doctor if symptoms have not improved over the next two days. Please return to the emergency room if your symptoms increase or worsen or for any other concerns. Apply a small amount of cream to the area 3 times a day. Referrals: Sendy Galvin MD [Primary Care Provider] - 1-2 days Time of Disposition: 17:16
== END 2017-01-10 17:25 | disposition home or self-care (01) ==
LOC: EC 16:55
DX: R23.4 Changes in skin texture (principal); I10 Essential (primary) hypertension; E11.9 Type 2 diabetes mellitus without complications; Z87.891 Personal history of nicotine dependence; Z79.899 Other long term (current) drug therapy; Z88.6 Allergy status to analgesic agent; Z88.1 Allergy status to other antibiotic agents; Z88.5 Allergy status to narcotic agent; Z88.7 Allergy status to serum and vaccine; Z88.8 Allergy status to other drugs, medicaments and biological substances
CPT/HCPCS: 99283

== ENCOUNTER 2017-01-17 09:49 | Emergency (ER) | payer MEDICARE ==
[2017-01-17 09:58] VITALS: RESP 20
[2017-01-17] MEDS ORDERED: ACETAMINOPHEN TAB 500 MG TAB PO STA (10:07)
--- NOTE | 2017-01-17 10:19 | ED ---
General Adult HPI - General Chief complaint: Upper Respiratory Infection Stated complaint: Poss Pneumonia Time Seen by Provider: 01/17/17 09:50 Source: patient, RN notes reviewed Mode of arrival: EMS Limitations: no limitations - History of Present Illness Initial comments: This is a 76-year-old male presents emergency Department complaining of a cough and coughing up some white sputum. Patient states when he coughs it does hurt his epigastric area but other than that he is not having any chest pain. Patient denies any shortness of breath or difficulty breathing. Patient denies any abdominal pain patient denies nausea vomiting diarrhea. Patient did not know that he had a fever but he doesn't emergency department. Patient denies any back pain. Patient denies any leg pain or increased swelling. Patient denies headache patient denies numbness weakness. Patient denies lightheadedness dizziness or near syncopal episode. - Related Data Home Medications Medication Instructions Recorded Confirmed Nitroglycerin Sl Tabs [Nitrostat] 0.4 mg SUBLINGUAL Q5M PRN 04/07/14 01/17/17 Hydrochlorothiazide [Hydrodiuril] 12.5 mg PO DAILY 08/01/16 01/17/17 Glimepiride [Amaryl] 1 mg PO AC-BRKFST 12/22/16 01/17/17 Acetaminophen [Tylenol] 500 mg PO Q4-6H PRN 01/10/17 01/17/17 Previous Rx's Medication Instructions Recorded Azithromycin [Zithromax Tri-Elias] 500 mg PO DAILY #3 tab 01/17/17 Allergies Allergy/AdvReac Type Severity Reaction Status Date / Time aspirin Allergy Intermediate Rash/Hives Verified 01/17/17 10:01 cephalexin monohydrate Allergy Intermediate Rash/Hives,SHORTNESS Verified 10:01 [From Keflex] OF BREATH, SWELLING cyclobenzaprine HCl Allergy Intermediate Swelling Verified 01/17/17 10:01 [From Flexeril] hydromorphone HCl Allergy Intermediate Swelling Verified 01/17/17 10:01 [From Dilaudid] ibuprofen [From Motrin] Allergy Intermediate Rash/Hives Verified 01/17/17 10:01 ketorolac tromethamine Allergy Intermediate Swelling Verified 01/17/17 10:01 [From Toradol] meperidine HCl [From Demerol] Allergy Intermediate Swelling Verified 01/17/17 10 :01 Tetanus Vaccines and Toxoid Allergy Intermediate Rash/Hives Verified 01/17/17 10 :01 [Tetanus Vaccines & Toxoid] celecoxib [From Celebrex] Allergy Swelling Verified 01/17/17 10:01 levofloxacin [From Levaquin] Allergy Swelling Verified 01/17/17 10:01 tramadol HCl [From Ultram] Allergy Rash/Hives Verified 01/17/17 10:01 fentanyl AdvReac Intermediate Nausea Verified 01/17/17 10:01 Review of Systems ROS Statement: Those systems with pertinent positive or pertinent negative responses have been documented in the HPI. ROS Other: All systems not noted in ROS Statement are negative. Past Medical History Past Medical History: Asthma, Cancer, Diabetes Mellitus, Hyperlipidemia, Hypertension, Neurologic Disorder, Osteoarthritis (OA), Pneumonia, Rheumatoid Arthritis (RA) Additional Past Medical History / Comment(s): Other HX: pancreatic cancer with surgery; parkinsons, generalized OA, gout bilateral feet yrs ago, numbness/ tingling hands/feet, moderate PVD, bronchitis, pneumonia in past, NIDDM type II. Last Myocardial Infarction Date:: 12/2005 History of Any Multi-Drug Resistant Organisms: None Reported Date of last positivie culture/infection: not sure MDRO Source:: under left arm Past Surgical History: Heart Catheterization, Joint Replacement, Tonsillectomy Additional Past Surgical History / Comment(s): 04/07/14 cath without intervention , 2013 total R knee, total L knee, R ankle ligament sx, R forearm skin graft, 2006 partial pancreas removal and spleenectomy at [facility]. Past Anesthesia/Blood Transfusion Reactions: No Reported Reaction Past Psychological History: Anxiety Additional Psychological History / Comment(s): Pt resides with his spouse. She is currently hospitalized. He uses a cane to ambulate. He doesn't own a car so he gets to [facility] by bus. He has meals on wheels. He has no home care agency use. He manages his own medication. Smoking Status: Former smoker Past Alcohol Use History: None Reported Additional Past Alcohol Use History / Comment(s): Pt started smoking in 1952 and quit in 1997 Past Drug Use History: None Reported - Past Family History Father Family Medical History: Osteoarthritis (OA) Additional Family Medical History / Comment(s): Father at age 88 yrs. Mother Family Medical History: Cancer Additional Family Medical History / Comment(s): Mother of stomach cancer at age 79 yrs. General Exam - General Exam Comments Initial Comments: GENERAL: Patient is well-developed and well-nourished. Patient is nontoxic and well- hydrated and is in mild distress. ENT: Neck is soft and supple. No significant lymphadenopathy is noted. Oropharynx is clear. Moist mucous membranes. Neck has full range of motion without eliciting any pain. EYES: The sclera were anicteric and conjunctiva were pink and moist. Extraocular movements were intact and pupils were equal round and reactive to light. Eyelids were unremarkable. PULMONARY: Unlabored respirations. Good breath sounds bilaterally. No audible rales rhonchi or wheezing was noted. CARDIOVASCULAR: There is a regular rate and rhythm without any murmurs gallops or rubs. ABDOMEN: Soft and nontender with normal bowel sounds. No palpable organomegaly was noted. There is no palpable pulsatile mass. SKIN: Skin is clear with no lesions or rashes and otherwise unremarkable. NEUROLOGIC: Patient is alert and oriented x3. Cranial nerves II through XII are grossly intact. Motor and sensory are also intact. Normal speech, volume and content. Symmetrical smile. MUSCULOSKELETAL: Normal extremities with adequate strength and full range of motion. No lower extremity swelling or edema. No calf tenderness. LYMPHATICS: No significant lymphadenopathy is noted PSYCHIATRIC: Normal psychiatric evaluation. Normal interpersonal interactions appears functionally intact in deals appropriately with others. No signs of depression. No signs of anxiety. Limitations: no limitations Course Vital Signs 01/17/17 01/17/17 01/17/17 09:55 11:04 11:32 Temperature 101.1 F H 100.3 F H Pulse Rate 94 82 88 Respiratory 20 20 Rate Blood Pressure 154/82 121/77 O2 Sat by Pulse 94 L 94 L Oximetry 01/17/17 11:42 Temperature Pulse Rate 92 Respiratory Rate Blood Pressure O2 Sat by Pulse Oximetry Medical Decision Making - Medical Decision Making EKG shows normal sinus rhythm at 90 bpm [place] interval 170 QRS is 126 QT intervals 44 QTC is 494. Patient's EKG shows no ST segment elevation or depression no T- wave abnormalities are noted. Patient has a right bundle branch block. Chest x-ray shows no acute normalities. Patient was breathing without any distress in the room. I started him on antibiotics and he will follow-up with his primary medical care doctor - Lab Data Result diagrams: 01/17/17 10:26 01/17/17 10:26 Lab Results 01/17/17 01/17/17 01/17/17 Range/Units 10:16 10:26 10:26 WBC 6.8 (3.8-10.6) k/uL RBC 5.23 (4.30-5.90) m/uL Hgb 16.9 (13.0-17.5) gm/dL Hct 50.4 (39.0-53.0) % MCV 96.3 (80.0-100.0) fL MCH 32.3 (25.0-35.0) pg MCHC 33.6 (31.0-37.0) g/dL RDW 13.9 (11.5-15.5) % Plt Count 370 (150-450) k/uL Neutrophils % 62 % Lymphocytes % 20 % Monocytes % 10 % Eosinophils % 4 % Basophils % 1 % Neutrophils # 4.3 (1.3-7.7) k/uL Lymphocytes # 1.4 (1.0-4.8) k/uL Monocytes # 0.7 (0-1.0) k/uL Eosinophils # 0.2 (0-0.7) k/uL Basophils # 0.1 (0-0.2) k/uL Sodium 137 (137-145) mmol/L Potassium 4.3 (3.5-5.1) mmol/L Chloride 102 (98-107) mmol/L Carbon Dioxide 26 (22-30) mmol/L Anion Gap 9 mmol/L BUN 19 (9-20) mg/dL Creatinine 1.01 (0.66-1.25) mg/dL Est GFR (MDRD) Af Amer >60 (>60 ml/min/1.73 sqM) Est GFR (MDRD) Non-Af >60 (>60 ml/min/1.73 sqM) Glucose 181 H (74-99) mg/dL Plasma Lactic Acid Jamison (0.7-2.0) mmol/L Calcium 8.9 (8.4-10.2) mg/dL Total Bilirubin 0.8 (0.2-1.3) mg/dL AST 29 (17-59) U/L ALT 38 (21-72) U/L Alkaline Phosphatase 78 (38-126) U/L Total Protein 7.4 (6.3-8.2) g/dL Albumin 3.9 (3.5-5.0) g/dL Influenza Type A RNA Not Detected (Not Detectd) Influenza Type B (PCR) Not Detected (Not Detectd) 01/17/17 Range/Units 10:26 WBC (3.8-10.6) k/uL RBC (4.30-5.90) m/uL Hgb (13.0-17.5) gm/dL Hct (39.0-53.0) % MCV (80.0-100.0) fL MCH (25.0-35.0) pg MCHC (31.0-37.0) g/dL RDW (11.5-15.5) % Plt Count (150-450) k/uL Neutrophils % % Lymphocytes % % Monocytes % % Eosinophils % % Basophils % % Neutrophils # (1.3-7.7) k/uL Lymphocytes # (1.0-4.8) k/uL Monocytes # (0-1.0) k/uL Eosinophils # (0-0.7) k/uL Basophils # (0-0.2) k/uL Sodium (137-145) mmol/L Potassium (3.5-5.1) mmol/L Chloride (98-107) mmol/L Carbon Dioxide (22-30) mmol/L Anion Gap mmol/L BUN (9-20) mg/dL Creatinine (0.66-1.25) mg/dL Est GFR (MDRD) Af Amer (>60 ml/min/1.73 sqM) Est GFR (MDRD) Non-Af (>60 ml/min/1.73 sqM) Glucose (74-99) mg/dL Plasma Lactic Acid Jamison 1.3 (0.7-2.0) mmol/L Calcium (8.4-10.2) mg/dL Total Bilirubin (0.2-1.3) mg/dL AST (17-59) U/L ALT (21-72) U/L Alkaline Phosphatase (38-126) U/L Total Protein (6.3-8.2) g/dL Albumin (3.5-5.0) g/dL Influenza Type A RNA (Not Detectd) Influenza Type B (PCR) (Not Detectd) Disposition Clinical Impression: Bronchitis Disposition: HOME SELF-CARE Condition: Good Instructions: Acute Bronchitis (ED) Prescriptions: Azithromycin [Zithromax Tri-Elias] 500 mg PO DAILY #3 tab Referrals: Sendy Galvin MD [Primary Care Provider] - 1-2 days Time of Disposition: 11:52
[2017-01-17 10:41] LABS: Basophils # (A) 0.1 k/uL (0-0.2); Basophils % (A) 1 %; CH 32.5; Eosinophils # (A) 0.2 k/uL (0-0.7); Eosinophils % (A) 4 %; HCT 50.4 % (39.0-53.0); HGB 16.9 gm/dL (13.0-17.5); Luc # (Auto) 0.22; Luc % (Auto) 3; Lymphocytes # (A) 1.4 k/uL (1.0-4.8); Lymphocytes % (A) 20 %; MCH 32.3 pg (25.0-35.0); MCHC 33.6 g/dL (31.0-37.0); MCV 96.3 fL (80.0-100.0); Mean Platelet Volume 6.7; Monocytes # (A) 0.7 k/uL (0-1.0); Monocytes % (A) 10 %; Neutrophils # (A) 4.3 k/uL (1.3-7.7); Neutrophils % (A) 62 %; RBC 5.23 m/uL (4.30-5.90); RDW 13.9 % (11.5-15.5); WBC 6.8 k/uL (3.8-10.6); WBC (Perox) 6.84
[2017-01-17 10:51] LABS: ALT 38 U/L (21-72); AST 29 U/L (17-59); Alkaline Phosphatase 78 U/L (38-126); Anion Gap 9 mmol/L; Blood Urea Nitrogen 19 mg/dL (9-20); Calcium 8.9 mg/dL (8.4-10.2); Carbon Dioxide 26 mmol/L (22-30); Chloride 102 mmol/L (98-107); Glucose 181 mg/dL (74-99); Non-African American GFR(MDRD) >60 (>60 ml/min/1.73 sqM); Potassium 4.3 mmol/L (3.5-5.1); Sodium 137 mmol/L (137-145); Total Bilirubin 0.8 mg/dL (0.2-1.3); Total Protein 7.4 g/dL (6.3-8.2)
--- NOTE | 2017-01-17 10:56 | XR ---
EXAMINATION TYPE: XR chest 2V DATE OF EXAM: 01/17/2017 10:44 AM COMPARISON: Chest x-ray December 22, 2016. CTA chest December 23, 2016. HISTORY: Left-sided chest pain for 2 days per patient. Difficulty in breathing per order. TECHNIQUE: Frontal and lateral views of the chest are obtained. FINDINGS: There is some patchy left basilar atelectasis and/or infiltrate. There is background mild chronic emphysematous change. The cardiac silhouette size is stable and mildly enlarged. The osseou s structures are intact. IMPRESSION: Mild cardiomegaly and chronic emphysematous change with patchy left basilar atelectasis and/or infiltrate noted.
[2017-01-17] MEDS ORDERED: IPRATROPIUM-ALBUTEROL 3 ML NEB INHALATION STA (11:08)
[2017-01-17] MEDS ORDERED: AZITHROMYCIN 500 MG TAB PO STA (11:09)
[2017-01-17 12:09] VITALS: BP 120/76; PULSE 94; TEMP 99.9
== END 2017-01-17 12:08 | disposition home or self-care (01) ==
LOC: EC 09:49
DX: J45.909 Unspecified asthma, uncomplicated (principal); I45.10 Unspecified right bundle-branch block; E11.9 Type 2 diabetes mellitus without complications; M06.9 Rheumatoid arthritis, unspecified; Z87.891 Personal history of nicotine dependence; Z79.899 Other long term (current) drug therapy; Z88.6 Allergy status to analgesic agent; Z88.1 Allergy status to other antibiotic agents; Z88.5 Allergy status to narcotic agent; Z88.7 Allergy status to serum and vaccine; Z88.8 Allergy status to other drugs, medicaments and biological substances; Z87.01 Personal history of pneumonia (recurrent)
CPT/HCPCS: 36415; 71020; 80053; 83605; 85025; 87040; 87502; 93005; 94640; 99284

== ENCOUNTER 2017-01-18 12:53 | Emergency (ER) | payer MEDICARE ==
[2017-01-18 13:17] VITALS: BP 126/77; PULSE 85; RESP 20; TEMP 99
--- NOTE | 2017-01-18 13:31 | ED ---
General Adult HPI - General Chief complaint: Allergic Reaction Stated complaint: allergic reaction Time Seen by Provider: 01/18/17 13:20 Source: patient, RN notes reviewed Mode of arrival: wheelchair Limitations: no limitations - History of Present Illness Initial comments: 76-year-old male presents emergency Department with chief complaint of possible ALLERGIC reaction. Patient states his placed on Z-Elias yesterday took it yesterday and today. Marshall that he had some loose stool today. He states he had 2 episodes of this denies any melena or hematochezia. Patient also thought he had some upper lip swelling though there is no evidence of this. Patient states she has a wound in his right nostril which is improving with Vaseline. Patient has a difficulty swallowing, breathing no rash or hives - Related Data Home Medications Medication Instructions Recorded Confirmed Nitroglycerin Sl Tabs [Nitrostat] 0.4 mg SUBLINGUAL Q5M PRN 04/07/14 01/17/17 Hydrochlorothiazide [Hydrodiuril] 12.5 mg PO DAILY 08/01/16 01/17/17 Glimepiride [Amaryl] 1 mg PO [id number] 12/22/16 01/17/17 Acetaminophen [Tylenol] 500 mg PO Q4-6H PRN 01/10/17 01/17/17 Previous Rx's Medication Instructions Recorded Azithromycin [Zithromax Tri-Elias] 500 mg PO DAILY #3 tab 01/17/17 Mupirocin 2% Oint [Bactroban 2% 1 applic NASAL TID #22 gm 01/18/17 Oint] Allergies Allergy/AdvReac Type Severity Reaction Status Date / Time aspirin Allergy Intermediate Rash/Hives Verified 01/17/17 10:01 cephalexin monohydrate Allergy Intermediate Rash/Hives,SHORTNESS Verified 10:01 [From Keflex] OF BREATH, SWELLING cyclobenzaprine HCl Allergy Intermediate Swelling Verified 01/17/17 10:01 [From Flexeril] hydromorphone HCl Allergy Intermediate Swelling Verified 01/17/17 10:01 [From Dilaudid] ibuprofen [From Motrin] Allergy Intermediate Rash/Hives Verified 01/17/17 10:01 ketorolac tromethamine Allergy Intermediate Swelling Verified 01/17/17 10:01 [From Toradol] meperidine HCl [From Demerol] Allergy Intermediate Swelling Verified 01/17/17 10 :01 Tetanus Vaccines and Toxoid Allergy Intermediate Rash/Hives Verified 01/17/17 10 :01 [Tetanus Vaccines & Toxoid] azithromycin Allergy Swelling Verified 01/18/17 13:17 [From Zithromax Z-Elias] celecoxib [From Celebrex] Allergy Swelling Verified 01/17/17 10:01 levofloxacin [From Levaquin] Allergy Swelling Verified 01/17/17 10:01 tramadol HCl [From Ultram] Allergy Rash/Hives Verified 01/17/17 10:01 fentanyl AdvReac Intermediate Nausea Verified 01/17/17 10:01 Review of Systems ROS Statement: Those systems with pertinent positive or pertinent negative responses have been documented in the HPI. ROS Other: All systems not noted in ROS Statement are negative. Past Medical History Past Medical History: Asthma, Cancer, Diabetes Mellitus, Hyperlipidemia, Hypertension, Neurologic Disorder, Osteoarthritis (OA), Pneumonia, Rheumatoid Arthritis (RA) Additional Past Medical History / Comment(s): Other HX: pancreatic cancer with surgery; parkinsons, generalized OA, gout bilateral feet yrs ago, numbness/ tingling hands/feet, moderate PVD, bronchitis, pneumonia in past, NIDDM type II. Last Myocardial Infarction Date:: 12/2005 History of Any Multi-Drug Resistant Organisms: None Reported Date of last positivie culture/infection: not sure MDRO Source:: under left arm Past Surgical History: Heart Catheterization, Joint Replacement, Tonsillectomy Additional Past Surgical History / Comment(s): 04/07/14 cath without intervention , 2013 total R knee, total L knee, R ankle ligament sx, R forearm skin graft, 2006 partial pancreas removal and spleenectomy at [facility]. Past Anesthesia/Blood Transfusion Reactions: No Reported Reaction Past Psychological History: Anxiety Additional Psychological History / Comment(s): Pt resides with his spouse. She is currently hospitalized. He uses a cane to ambulate. He doesn't own a car so he gets to [facility] by bus. He has meals on wheels. He has no home care agency use. He manages his own medication. Smoking Status: Former smoker Past Alcohol Use History: None Reported Additional Past Alcohol Use History / Comment(s): Pt started smoking in 1 and quit in 1997 Past Drug Use History: None Reported - Past Family History Father Family Medical History: Osteoarthritis (OA) Additional Family Medical History / Comment(s): Father at age 88 yrs. Mother Family Medical History: Cancer Additional Family Medical History / Comment(s): Mother of stomach cancer at age 79 yrs. General Exam Limitations: no limitations General appearance: alert, in no apparent distress Head exam: Present: atraumatic, normocephalic, normal inspection Eye exam: Present: normal appearance, PERRL, EOMI. Absent: scleral icterus, conjunctival injection, periorbital swelling ENT exam: Present: normal oropharynx, mucous membranes moist, TM's normal bilaterally, normal external ear exam, other (There is a wound noted in the right naris with mild swelling, no facial swelling no angioedema). Absent: normal exam Neck exam: Present: normal inspection, full ROM. Absent: tenderness, meningismus, lymphadenopathy Respiratory exam: Present: normal lung sounds bilaterally. Absent: respiratory distress, wheezes, rales, rhonchi, stridor Cardiovascular Exam: Present: regular rate, normal rhythm, normal heart sounds. Absent: systolic murmur, diastolic murmur, rubs, gallop, clicks Course Vital Signs 01/18/17 13:14 Temperature 99.0 F Pulse Rate 85 Respiratory 20 Rate Blood Pressure 126/77 O2 Sat by Pulse 91 L Oximetry Medical Decision Making - Medical Decision Making 76-year-old male presented for possible ALLERGIC reaction. Patient has adverse reaction in which she had loose stool. He may take [id number] Imodium for this. Patient has multiple ALLERGIES and antibiotic will not be switched at time. Patient has no evidence of angioedema. Patient 5 no respiratory distress he did have 2 doses of medicine and has tolerated this in the past. He does have right nostril wound. Patient be given Bactroban ointment for this. Disposition Clinical Impression: Adverse drug reaction, Open nasal wound Disposition: HOME SELF-CARE Condition: Stable Instructions: Mupirocin (Into the nose) Additional Instructions: Please return to the Emergency Department if symptoms worsen or any other concerns. You may take [id number] Imodium for your diarrhea as directed. Prescriptions: Mupirocin 2% Oint [Bactroban 2% Oint] 1 applic NASAL TID #22 gm Referrals: Sendy Galvin MD [Primary Care Provider] - 1-2 days Time of Disposition: 13:31
== END 2017-01-18 13:45 | disposition home or self-care (01) ==
LOC: EC 12:53
DX: T50.905A Adverse effect of unspecified drugs, medicaments and biological substances, initial encounter (principal); S01.20XA Unspecified open wound of nose, initial encounter; E11.9 Type 2 diabetes mellitus without complications; I10 Essential (primary) hypertension; Z96.653 Presence of artificial knee joint, bilateral; Z85.07 Personal history of malignant neoplasm of pancreas; Z87.891 Personal history of nicotine dependence; Z79.84 Long term (current) use of oral hypoglycemic drugs; Z79.899 Other long term (current) drug therapy; Z88.1 Allergy status to other antibiotic agents; Z88.5 Allergy status to narcotic agent; Z88.6 Allergy status to analgesic agent; Z88.7 Allergy status to serum and vaccine; Z88.8 Allergy status to other drugs, medicaments and biological substances
CPT/HCPCS: 99283